=== PATIENT | female | born 1990 | race Caucasian/White ===

== ENCOUNTER 2018-03-23 14:54 | Emergency (ER) | payer OTHER, MEDICAID ==
[~2018-03-23] VITALS: Ht 157.5 cm; Wt 56.7 kg
[~2018-03-23 14:54] MED LIST: ACETAMINOPHEN-1 EAC1 PO; AUGMENTIN 875875 M1 PO; BACTROBAN22 GM TP; BENADRYL25 MG; BENADRYL25 MG PO; BENTYL 20 MG TA20 M1 PO; BENTYL10 MG PO; BIRTH CONTROL; BUTALB-APAP-CA1 EACH PO; CIPRO250 M1; COLACE100 MG PO; CORTISPORIN OTI10 M2 OT; CYMBALTA30 MG; HYDROCHLOROTHIA25 M2; HYDROCHLOROTHIA25 M2 PO; HYDROCODONE-AP1 EAC6 PO; HYDROCODONE-APA1 TA1 PO; IBUPROFEN 600600 M1 PO; IBUPROFEN 800800 M1 PO; IBUPROFEN 800800 MG PO; IRON325 PO; KEFLEX500 MG PO; LEVAQUIN 500 M500 M2 PO; LIORESAL 10 MG10 MG PO; LOPERAMIDE 2 MG2 M1 PO; LUNESTA2 MG PO; MACROBID 100 M100 M1 PO; MACROBID 100 M100 M2 PO; MONESSA PO; MULTIVITAMINS; NORCO 5-325 TA1 EACH PO; PAXIL10 MG PO; PAXIL20 MG; PERCOCET 5-3251 EACH PO; PERCOCET PO; PHENERGAN 25 MG25 M1 PO; PREDNISONE 20 M20 MG PO; PRENATAL; PROZAC 20 MG20 M1; SUPRAX400 MG; TRAMADOL 50 MG50 MG PO; TRINATE TABLET1 TAB PO; VICODIN 5-5001 EACH; VICODIN 5-5001 EACH PO; ZANAFLEX4 M1 PO; ZANTAC 150MG T150 MG PO; ZOFRAN ODT4 MG PO; ZOFRAN ODT4 MG SUBLING; ZOFRAN4 MG PO; ZOLOFT50 MG PO; ZPAK PO; ZYRTEC10 M5 PO
[2018-03-23 15:18] LABS: URINE BILIRUBIN NEGATIVE (Negative); URINE BLOOD NEGATIVE (Negative); URINE CLARITY CLEAR; URINE COLOR YELLOW; URINE GLUCOSE-RANDOM NEGATIVE (Negative); URINE KETONES NEGATIVE (Negative); URINE LEUKOCYTES-REFLEX TRACE (Negative); URINE NITRITE-REFLEX NEGATIVE (Negative); URINE PROTEIN NEGATIVE (Negative); URINE SPECIFIC GRAVITY <= 1.005 (1.005-1.030); URINE UROBILINOGEN 0.2 E.U./dl (0.2-1.0)
[2018-03-23] MEDS ORDERED: MAGOX 400400 MG PO (15:19)
[2018-03-23] MEDS ORDERED: CELEXA 10 MG TA10 M1 PO (15:21)
[2018-03-23] MEDS ORDERED: BUSPIRONE HCL10 MG PO (15:21)
[2018-03-23 15:23] LABS: BACTERIA-REFLEX None Seen /HPF (None Seen); CASTS None Seen /LPF (None Seen); CRYSTALS None Seen /LPF (None Seen); SQUAMOUS NONE SEEN /LPF (0-3); URINE RBC None Seen /HPF (0-2); URINE WBC-REFLEX None Seen /HPF (0-5)
[2018-03-23 15:45] LABS: ABSOLUTE BASOPHILS 0.1 thou/uL (0.0-0.2); ABSOLUTE EOSINOPHILS 0.1 thou/uL (0.0-0.7); ABSOLUTE LYMPHOCYTES 2.3 thou/uL (0.8-5.3); ABSOLUTE MONOCYTES 0.4 thou/uL (0.0-1.2); ABSOLUTE NEUTROPHILS 5.7 thou/uL (1.6-8.1); BASOPHILS 0.6 %; EOSINOPHILS 1.4 %; HEMATOCRIT 41.8 % (37.0-47.0); HEMOGLOBIN 13.8 gm/dL (12.0-15.0); MCH 29.3 pg (26.0-34.0); MCV 88.6 fL (80.0-100.0); MONOCYTES 4.9 %; MPV 7.5 fl. (7.2-11.1); NUCLEATED RBCS 0 /100WBC; PLATELET COUNT* 370 thou/uL (150-400); POLYS 66.1 %; RBC 4.72 mil/uL (4.20-5.00); RDW-CV 12.9 % (10.5-14.5); WBC 8.6 thou/uL (4.0-11.0)
[2018-03-23 15:51] LABS: CALCIUM 8.9 mg/dL (8.5-10.1); CREATININE 0.8 mg/dL (0.6-1.3); POTASSIUM 3.6 mmol/L (3.5-5.1)
[2018-03-23 15:56] LABS: ALBUMIN 4.1 g/dL (3.4-5.0); TOTAL BILIRUBIN 0.3 mg/dL (<0.1-1.0); TOTAL PROTEIN 7.1 g/dL (6.4-8.2)
[2018-03-23 16:01] VITALS: BP 118/69
== END 2018-03-23 16:02 | disposition left against medical advice (07) ==
LOC: M.ERS 14:54
PROVIDERS: Nurse Practitioner Family
DX: R10.31 Right lower quadrant pain (principal); F32.9 Major depressive disorder, single episode, unspecified; I10 Essential (primary) hypertension; F17.210 Nicotine dependence, cigarettes, uncomplicated; Z88.1 Allergy status to other antibiotic agents; Z88.2 Allergy status to sulfonamides; Z88.8 Allergy status to other drugs, medicaments and biological substances; Z98.890 Other specified postprocedural states; Z87.442 Personal history of urinary calculi; Z90.49 Acquired absence of other specified parts of digestive tract; Z90.710 Acquired absence of both cervix and uterus

== ENCOUNTER 2018-07-23 08:49 | Emergency (ER) | payer OTHER, MEDICAID ==
[~2018-07-23] VITALS: Ht 157.5 cm; Wt 51.3 kg
[~2018-07-23 08:49] MED LIST changes: +BUSPIRONE HCL10 MG PO; +CELEXA 10 MG TA10 M1 PO; +MAGOX 400400 MG PO
[2018-07-23] MEDS ORDERED: MULTI VITAMIN1 EACH PO (09:17)
[2018-07-23] MEDS ORDERED: VITAMIN D400 UNIT PO (09:17)
[2018-07-23] MEDS ORDERED: CYMBALTA60 MG PO (09:18)
[2018-07-23] MEDS ORDERED: TRAZODONE HCL100 MG PO (09:18)
[2018-07-23 09:37] LABS: ABSOLUTE EOSINOPHILS 0.2 thou/uL (0.0-0.7); ABSOLUTE LYMPHOCYTES 1.8 thou/uL (0.8-5.3); ABSOLUTE MONOCYTES 0.4 thou/uL (0.0-1.2); BASOPHILS 0.5 %; EOSINOPHILS 2.5 %; HEMATOCRIT 39.5 % (37.0-47.0); HEMOGLOBIN 13.2 gm/dL (12.0-15.0); LYMPHOCYTES 27.8 %; MCH 29.9 pg (26.0-34.0); MCHC 33.4 g/dL (28.0-37.0); MCV 89.5 fL (80.0-100.0); MONOCYTES 6.6 %; MPV 7.5 fl. (7.2-11.1); NUCLEATED RBCS 0 /100WBC; PLATELET COUNT* 344 thou/uL (150-400); POLYS 62.6 %; RBC 4.41 mil/uL (4.20-5.00); RDW-CV 13.4 % (10.5-14.5); WBC 6.4 thou/uL (4.0-11.0)
[2018-07-23 09:40] LABS: URINE BILIRUBIN NEGATIVE (Negative); URINE BLOOD NEGATIVE (Negative); URINE CLARITY CLEAR; URINE COLOR YELLOW; URINE GLUCOSE-RANDOM NEGATIVE (Negative); URINE KETONES NEGATIVE (Negative); URINE LEUKOCYTES-REFLEX NEGATIVE (Negative); URINE NITRITE-REFLEX NEGATIVE (Negative); URINE PROTEIN NEGATIVE (Negative); URINE SPECIFIC GRAVITY >= 1.030 (1.005-1.030); URINE UROBILINOGEN 0.2 E.U./dl (0.2-1.0)
[2018-07-23 09:44] LABS: CALCIUM 9.5 mg/dL (8.5-10.1); CREATININE 0.8 mg/dL (0.6-1.3)
[2018-07-23 09:49] LABS: ALBUMIN 4.1 g/dL (3.4-5.0); TOTAL BILIRUBIN 0.4 mg/dL (<0.1-1.0); TOTAL PROTEIN 6.9 g/dL (6.4-8.2)
[2018-07-23] MEDS ORDERED: ERYTHROMYCIN250 MG PO (10:48)
[2018-07-23] MEDS ORDERED: HYDROCODON-ACE1 EAC7 PO (10:48)
[2018-07-23] MEDS ORDERED: ZOFRAN4 MG PO (10:48)
[2018-07-23 11:03] VITALS: BP 94/35
== END 2018-07-23 11:18 | disposition home or self-care (01) ==
LOC: M.ERS 08:49
PROVIDERS: Emergency Medicine
DX: T85.848A Pain due to other internal prosthetic devices, implants and grafts, initial encounter (principal); R10.31 Right lower quadrant pain; R10.32 Left lower quadrant pain; F32.9 Major depressive disorder, single episode, unspecified; I10 Essential (primary) hypertension; M41.9 Scoliosis, unspecified; F17.210 Nicotine dependence, cigarettes, uncomplicated; Z88.2 Allergy status to sulfonamides; Z88.1 Allergy status to other antibiotic agents; Z87.442 Personal history of urinary calculi; Z90.710 Acquired absence of both cervix and uterus; Z98.890 Other specified postprocedural states; X58.XXXA Exposure to other specified factors, initial encounter; Y93.89 Activity, other specified; Y92.89 Other specified places as the place of occurrence of the external cause; Y99.8 Other external cause status

== ENCOUNTER 2018-07-26 16:59 | Emergency (ER) | payer OTHER, MEDICAID ==
[~2018-07-26] VITALS: Ht 157.5 cm; Wt 52.2 kg
[~2018-07-26 16:59] MED LIST changes: +CYMBALTA60 MG PO; +ERYTHROMYCIN250 MG PO; +HYDROCODON-ACE1 EAC7 PO; +MULTI VITAMIN1 EACH PO; +TRAZODONE HCL100 MG PO; +VITAMIN D400 UNIT PO
[2018-07-26] MEDS ORDERED: BUSPIRONE HCL10 MG PO (17:09)
[2018-07-26] MEDS ORDERED: TRAMADOL 50 MG50 MG PO (17:10)
[2018-07-26] MEDS ORDERED: PROTONIX40 M1 PO (17:10)
[2018-07-26 18:05] LABS: ABSOLUTE EOSINOPHILS 0.1 thou/uL (0.0-0.7); ABSOLUTE LYMPHOCYTES 1.6 thou/uL (0.8-5.3); ABSOLUTE MONOCYTES 0.4 thou/uL (0.0-1.2); BASOPHILS 0.5 %; EOSINOPHILS 2.4 %; HEMATOCRIT 37.1 % (37.0-47.0); HEMOGLOBIN 12.6 gm/dL (12.0-15.0); LYMPHOCYTES 25.2 %; MCH 30.2 pg (26.0-34.0); MCHC 33.8 g/dL (28.0-37.0); MCV 89.3 fL (80.0-100.0); MONOCYTES 6.3 %; MPV 7.7 fl. (7.2-11.1); NUCLEATED RBCS 0 /100WBC; PLATELET COUNT* 346 thou/uL (150-400); POLYS 65.6 %; RBC 4.16 mil/uL (4.20-5.00); RDW-CV 12.9 % (10.5-14.5); WBC 6.2 thou/uL (4.0-11.0)
[2018-07-26 18:15] LABS: ANION GAP 7 mmol/L (7-16); BUN 8 mg/dL (7-18); CALCIUM 8.6 mg/dL (8.5-10.1); CHLORIDE 107 mmol/L (98-107); CO2 27 mmol/L (21-32); CREATININE 0.7 mg/dL (0.6-1.3); GLUCOSE 91 mg/dL (70-99); POTASSIUM 4.1 mmol/L (3.5-5.1); SODIUM 141 mmol/L (136-145)
[2018-07-26 18:24] LABS: ALBUMIN 3.7 g/dL (3.4-5.0); ALKALINE PHOSPHATASE 44 U/L (46-116); LIPASE 56 U/L (73-393); SGOT 15 U/L (15-37); SGPT 17 U/L (30-65); TOTAL BILIRUBIN 0.3 mg/dL (<0.1-1.0); TOTAL PROTEIN 6.4 g/dL (6.4-8.2); TROPONIN-I LEVEL <0.06 ng/mL (<0.06)
[2018-07-26] MEDS ORDERED: CARAFATE1 GM/10 ML PO (19:48)
[2018-07-26] MEDS ORDERED: LIDOCAINE VISC100 ML PO (19:48)
[2018-07-26 19:59] VITALS: BP 101/61
--- NOTE | 2018-07-27 11:11 | EKG ---
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1990 Requested By: Rola Moreno Order Number: [id number] MD: Valdez Nunze Measurements Intervals [place] Rate: 83 P: 48 TX: 115 QRS: 80 QRSD: 91 T: 68 QT: 351 QTc: 413 Interpretive Statements Sinus rhythm Borderline short [place] interval Compared to ECG 03/26/2016 08:35:57 Sinus tachycardia no longer present T-wave abnormality no longer present Electronically Signed On 07-27-2018 11:11:00 CDT by Valdez Nunez [email or web address] <ELECTRONICALLY SIGNED> By: Valdez Nunez MD, [facility] 07/27/18 1111 1702 170 Valdez Nunez MD, [facility] /EPI
== END 2018-07-26 19:59 | disposition home or self-care (01) ==
LOC: M.ERS 16:59
PROVIDERS: Nurse Practitioner Family
DX: R07.89 Other chest pain (principal); R10.13 Epigastric pain; G89.18 Other acute postprocedural pain; G89.29 Other chronic pain; F17.200 Nicotine dependence, unspecified, uncomplicated; M41.9 Scoliosis, unspecified; F32.9 Major depressive disorder, single episode, unspecified; I10 Essential (primary) hypertension; Z87.42 Personal history of other diseases of the female genital tract; Z90.710 Acquired absence of both cervix and uterus; Z88.8 Allergy status to other drugs, medicaments and biological substances; Z88.1 Allergy status to other antibiotic agents; Z88.2 Allergy status to sulfonamides; Z98.890 Other specified postprocedural states

== ENCOUNTER 2018-11-15 11:21 | Emergency (ER) | payer OTHER ==
[~2018-11-15] VITALS: Ht 157.5 cm; Wt 62.6 kg
[~2018-11-15 11:21] MED LIST changes: +CARAFATE1 GM/10 ML PO; +LIDOCAINE VISC100 ML PO; +PROTONIX40 M1 PO
[2018-11-15 12:27] LABS: ABSOLUTE EOSINOPHILS 0.6 thou/uL (0.0-0.7); ABSOLUTE LYMPHOCYTES 1.1 thou/uL (0.8-5.3); ABSOLUTE MONOCYTES 0.2 thou/uL (0.0-1.2); ABSOLUTE NEUTROPHILS 4.1 thou/uL (1.6-8.1); BASOPHILS 0.4 %; EOSINOPHILS 9.9 %; HEMATOCRIT 37.1 % (37.0-47.0); HEMOGLOBIN 12.9 gm/dL (12.0-15.0); LYMPHOCYTES 18.2 %; MCH 30.3 pg (26.0-34.0); MCHC 34.7 g/dL (28.0-37.0); MCV 87.2 fL (80.0-100.0); MONOCYTES 2.6 %; MPV 6.5 fl. (7.2-11.1); NUCLEATED RBCS 0 /100WBC; PLATELET COUNT* 306 thou/uL (150-400); POLYS 68.9 %; RBC 4.26 mil/uL (4.20-5.00); RDW-CV 12.6 % (10.5-14.5); WBC 5.9 thou/uL (4.0-11.0)
[2018-11-15 12:34] LABS: CREATININE 0.8 mg/dL (0.6-1.3); POTASSIUM 3.8 mmol/L (3.5-5.1)
[2018-11-15 12:39] LABS: ALBUMIN 3.2 g/dL (3.4-5.0); TOTAL BILIRUBIN 0.2 mg/dL (<0.1-1.0); TOTAL PROTEIN 6.1 g/dL (6.4-8.2)
[2018-11-15] MEDS ORDERED: PREDNISONE 20 M20 MG PO (12:52)
[2018-11-15] MEDS ORDERED: ZPAK PO (12:52)
[2018-11-15 13:04] VITALS: BP 105/59
== END 2018-11-15 13:04 | disposition home or self-care (01) ==
LOC: M.ERS 11:21
PROVIDERS: Physician Assistant
DX: J02.9 Acute pharyngitis, unspecified (principal); R21 Rash and other nonspecific skin eruption; F17.200 Nicotine dependence, unspecified, uncomplicated; I10 Essential (primary) hypertension; F32.9 Major depressive disorder, single episode, unspecified; M41.9 Scoliosis, unspecified; Z88.1 Allergy status to other antibiotic agents; Z88.2 Allergy status to sulfonamides; Z88.8 Allergy status to other drugs, medicaments and biological substances; Z98.890 Other specified postprocedural states; Z87.442 Personal history of urinary calculi; Z90.710 Acquired absence of both cervix and uterus

== ENCOUNTER 2019-01-06 10:02 | Emergency (ER) | payer OTHER ==
[~2019-01-06] VITALS: Ht 157.5 cm; Wt 79.4 kg
[2019-01-06] MEDS ORDERED: ADVIL100 M2 PO (10:23)
[2019-01-06] MEDS ORDERED: XANAX2 MG PO (10:24)
[2019-01-06] MEDS ORDERED: AMITRIPTYLINE H10 M1 PO (10:24)
[2019-01-06] MEDS ORDERED: TRAZODONE 150150 M1 PO (10:24)
[2019-01-06 10:56] LABS: URINE BILIRUBIN NEGATIVE (Negative); URINE BLOOD NEGATIVE (Negative); URINE CLARITY CLEAR; URINE COLOR STRAW; URINE GLUCOSE-RANDOM NEGATIVE (Negative); URINE KETONES NEGATIVE (Negative); URINE LEUKOCYTES-REFLEX TRACE (Negative); URINE NITRITE-REFLEX NEGATIVE (Negative); URINE PROTEIN NEGATIVE (Negative); URINE UROBILINOGEN 0.2 E.U./dl (0.2-1.0)
[2019-01-06 11:00] LABS: SQUAMOUS >10 Many /LPF (0-3)
[2019-01-06 11:02] LABS: URINE RBC 0-2 Rare /HPF (0-2); URINE WBC-REFLEX 6-15 Few /HPF (0-5)
[2019-01-06 11:03] LABS: CASTS None Seen /LPF (None Seen); CRYSTALS None Seen /LPF (None Seen); MUCUS None Seen strn/LPF (None Seen); YEAST-REFLEX Present (None Seen)
[2019-01-06 11:17] LABS: ABSOLUTE EOSINOPHILS 0.3 thou/uL (0.0-0.7); ABSOLUTE LYMPHOCYTES 1.8 thou/uL (0.8-5.3); ABSOLUTE MONOCYTES 0.6 thou/uL (0.0-1.2); ABSOLUTE NEUTROPHILS 6.5 thou/uL (1.6-8.1); BASOPHILS 0.5 %; EOSINOPHILS 3.6 %; HEMATOCRIT 38.4 % (37.0-47.0); HEMOGLOBIN 12.9 gm/dL (12.0-15.0); LYMPHOCYTES 19.2 %; MCH 28.8 pg (26.0-34.0); MCHC 33.5 g/dL (28.0-37.0); MONOCYTES 6.3 %; MPV 5.9 fl. (7.2-11.1); NUCLEATED RBCS 0 /100WBC; PLATELET COUNT* 457 thou/uL (150-400); POLYS 70.4 %; RBC 4.47 mil/uL (4.20-5.00); RDW-CV 12.7 % (10.5-14.5); WBC 9.2 thou/uL (4.0-11.0)
[2019-01-06 11:25] LABS: CALCIUM 9.1 mg/dL (8.5-10.1); CREATININE 0.8 mg/dL (0.6-1.3); POTASSIUM 4.9 mmol/L (3.5-5.1)
[2019-01-06 11:37] LABS: ALBUMIN 3.6 g/dL (3.4-5.0); TOTAL BILIRUBIN 0.2 mg/dL (<0.1-1.0); TOTAL PROTEIN 6.5 g/dL (6.4-8.2)
[2019-01-06] MEDS ORDERED: COLACE100 MG PO (11:43)
[2019-01-06 11:52] VITALS: BP 137/76
--- NOTE | 2019-01-07 12:09 | EKG ---
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: : 1990 Requested By: Chantal Lord Order Number: [id number] MD: Raghu Stallings Measurements Intervals [place] Rate: 89 P: 62 MO: 135 QRS: 75 QRSD: 94 T: 67 QT: 368 QTc: 448 Interpretive Statements Sinus rhythm Nonspecific T abnrm, anterolateral leads Compared to ECG 07/26/2018 17:02:13 No significant changes Electronically Signed On 01-07-2019 12:09:39 SOAP BOILER by Raghu Stallings [email or web address] <ELECTRONICALLY SIGNED> By: Raghu Stallings MD, [facility] 01/07/19 1209 1042 41 Raghu Stallings MD, FACC /EPI
== END 2019-01-06 11:52 | disposition home or self-care (01) ==
LOC: M.ERS 10:02
PROVIDERS: Nurse Practitioner Family
DX: K59.00 Constipation, unspecified (principal); R10.84 Generalized abdominal pain; I10 Essential (primary) hypertension; M41.9 Scoliosis, unspecified; F32.9 Major depressive disorder, single episode, unspecified; Z98.890 Other specified postprocedural states; Z87.442 Personal history of urinary calculi; Z90.710 Acquired absence of both cervix and uterus; Z88.1 Allergy status to other antibiotic agents; Z88.2 Allergy status to sulfonamides

== ENCOUNTER 2019-05-06 13:54 | Emergency (ER) | payer OTHER ==
[~2019-05-06] VITALS: Ht 157.5 cm; Wt 64.9 kg
[~2019-05-06 13:54] MED LIST changes: +ADVIL100 M2 PO; +AMITRIPTYLINE H10 M1 PO; +TRAZODONE 150150 M1 PO; +XANAX2 MG PO
[2019-05-06 14:10] LABS: URINE BILIRUBIN NEGATIVE (Negative); URINE BLOOD NEGATIVE (Negative); URINE CLARITY CLEAR; URINE COLOR YELLOW; URINE GLUCOSE-RANDOM NEGATIVE (Negative); URINE KETONES NEGATIVE (Negative); URINE LEUKOCYTES-REFLEX NEGATIVE (Negative); URINE NITRITE-REFLEX NEGATIVE (Negative); URINE PROTEIN NEGATIVE (Negative); URINE SPECIFIC GRAVITY 1.015 (1.005-1.030); URINE UROBILINOGEN 0.2 E.U./dl (0.2-1.0)
[2019-05-06] MEDS ORDERED: ROBAXIN 750 MG750 MG PO (14:12)
[2019-05-06] MEDS ORDERED: PREDNISONE 5 MG5 M1 PO (14:12)
[2019-05-06 14:55] LABS: ABSOLUTE LYMPHOCYTES 0.9 thou/uL (0.8-5.3); ABSOLUTE MONOCYTES 0.4 thou/uL (0.0-1.2); ABSOLUTE NEUTROPHILS 5.7 thou/uL (1.6-8.1); BASOPHILS 0.3 %; EOSINOPHILS 0.3 %; HEMATOCRIT 40.4 % (37.0-47.0); HEMOGLOBIN 13.8 gm/dL (12.0-15.0); MCH 29.6 pg (26.0-34.0); MCHC 34.2 g/dL (28.0-37.0); MCV 86.7 fL (80.0-100.0); MONOCYTES 6.3 %; MPV 7.4 fl. (7.2-11.1); NUCLEATED RBCS 0 /100WBC; PLATELET COUNT* 399 thou/uL (150-400); POLYS 80.1 %; RBC 4.66 mil/uL (4.20-5.00); RDW-CV 13.3 % (10.5-14.5); WBC 7.2 thou/uL (4.0-11.0)
[2019-05-06 15:04] LABS: CALCIUM 8.6 mg/dL (8.5-10.1); CREATININE 0.7 mg/dL (0.6-1.3); POTASSIUM 3.7 mmol/L (3.5-5.1)
[2019-05-06 15:08] LABS: ALBUMIN 3.8 g/dL (3.4-5.0); TOTAL BILIRUBIN 0.2 mg/dL (<0.1-1.0); TOTAL PROTEIN 6.7 g/dL (6.4-8.2)
[2019-05-06] MEDS ORDERED: NORCO 5-325 TA1 EAC1 PO (16:00)
[2019-05-06] MEDS ORDERED: LIDODERM1 EACH TRANSDERM (16:00)
[2019-05-06 16:05] LABS: ESR (SEDRATE) 3 mm/hr (0-20)
[2019-05-06 16:13] VITALS: BP 111/81
[2019-05-06 17:03] LABS: AMP/METHAMP Negative (Negative); BARBITURATES Negative (Negative); BENZODIAZEPINES Negative (Negative); COCAINE Negative (Negative); METHADONE Negative (Negative); OPIATES POSITIVE (Negative); PCP Negative (Negative); THC Negative (Negative)
--- NOTE | 2019-05-07 10:59 | EKG ---
[place] [address] ELECTROCARDIOGRAM REPORT Name: ANAYELI PRAJAPATI Room: [facility]#: [id number] Admission: 05/06/19 Attend Phys: Discharge: 05/06/19 Date of : [birth year] Date of Service: 05/06/19 1505 Report #: [id number] THIS REPORT FOR: //name// [facility] ED Test Date: 2019-05-06 Test Time: 15:05:54 Pat Name: ANAYELI PRAJAPATI Department: Room: Gender: F Director Trust: : 1990 Requested By: Paige Garcia Order Number: [id number] MD: Valdez Nunez Measurements Intervals [place] Rate: 114 P: 77 NC: 121 QRS: 85 QRSD: 84 T: 53 QT: 301 QTc: 415 Interpretive Statements Sinus tachycardia Baseline wander in lead(s) V5 Compared to ECG 01/06/2019 10:42:07 Sinus rhythm no longer present Electronically Signed On 05-07-2019 10:58:46 DIORAMIST by Valdez Nunez [email or web address] <ELECTRONICALLY SIGNED> By: Valdez Nunez MD, FAC 05/07/19 1058 1505 1505 Valdez Nunez MD, [facility] /EPI
== END 2019-05-06 16:15 | disposition home or self-care (01) ==
LOC: M.ERS 13:54
PROVIDERS: Physician Assistant
DX: M54.2 Cervicalgia (principal); M54.5 Low back pain; R05 Cough; R00.0 Tachycardia, unspecified; I10 Essential (primary) hypertension; M79.7 Fibromyalgia; M41.9 Scoliosis, unspecified; F32.9 Major depressive disorder, single episode, unspecified; F41.9 Anxiety disorder, unspecified; Z98.890 Other specified postprocedural states; Z87.442 Personal history of urinary calculi; Z90.710 Acquired absence of both cervix and uterus; Z88.1 Allergy status to other antibiotic agents

== ENCOUNTER 2019-05-09 16:52 | Emergency (ER) | payer OTHER ==
[~2019-05-09] VITALS: Ht 157.5 cm; Wt 66.7 kg
[~2019-05-09 16:52] MED LIST changes: +LIDODERM1 EACH TRANSDERM; +NORCO 5-325 TA1 EAC1 PO; +PREDNISONE 5 MG5 M1 PO; +ROBAXIN 750 MG750 MG PO
[2019-05-09] MEDS ORDERED: BUSPIRONE HCL10 MG PO (17:05)
[2019-05-09] MEDS ORDERED: XANAX 0.5 MG0.5 M1 PO (17:06)
[2019-05-09 17:29] LABS: ABSOLUTE LYMPHOCYTES 1.3 thou/uL (0.8-5.3); ABSOLUTE MONOCYTES 0.3 thou/uL (0.0-1.2); BASOPHILS 0.4 %; HEMATOCRIT 41.8 % (37.0-47.0); HEMOGLOBIN 14.1 gm/dL (12.0-15.0); LYMPHOCYTES 15.1 %; MCH 29.1 pg (26.0-34.0); MCHC 33.7 g/dL (28.0-37.0); MCV 86.3 fL (80.0-100.0); MONOCYTES 2.9 %; MPV 7.1 fl. (7.2-11.1); NUCLEATED RBCS 0 /100WBC; PLATELET COUNT* 415 thou/uL (150-400); POLYS 81.6 %; RBC 4.84 mil/uL (4.20-5.00); RDW-CV 13.3 % (10.5-14.5); WBC 8.6 thou/uL (4.0-11.0)
[2019-05-09 17:33] LABS: URINE BILIRUBIN NEGATIVE (Negative); URINE BLOOD NEGATIVE (Negative); URINE CLARITY CLEAR; URINE COLOR YELLOW; URINE GLUCOSE-RANDOM NEGATIVE (Negative); URINE KETONES NEGATIVE (Negative); URINE LEUKOCYTES-REFLEX TRACE (Negative); URINE NITRITE-REFLEX NEGATIVE (Negative); URINE PROTEIN NEGATIVE (Negative); URINE SPECIFIC GRAVITY 1.015 (1.005-1.030); URINE UROBILINOGEN 0.2 E.U./dl (0.2-1.0)
[2019-05-09 17:42] LABS: BACTERIA-REFLEX 1-9 Few /HPF (None Seen); CASTS None Seen /LPF (None Seen); CRYSTALS None Seen /LPF (None Seen); MUCUS None Seen strn/LPF (None Seen); SQUAMOUS >10 Many /LPF (0-3); URINE RBC None Seen /HPF (0-2); URINE WBC-REFLEX 0-5 Rare /HPF (0-5)
[2019-05-09 17:45] LABS: CALCIUM 8.5 mg/dL (8.5-10.1); CREATININE 0.6 mg/dL (0.6-1.3); POTASSIUM 3.8 mmol/L (3.5-5.1)
[2019-05-09 17:49] LABS: ALBUMIN 3.8 g/dL (3.4-5.0); TOTAL BILIRUBIN 0.2 mg/dL (<0.1-1.0); TOTAL PROTEIN 6.8 g/dL (6.4-8.2)
[2019-05-09] MEDS ORDERED: NORCO 5-325 TA1 EAC1 PO (19:29)
[2019-05-09 19:53] VITALS: BP 125/62
== END 2019-05-09 19:53 | disposition home or self-care (01) ==
LOC: M.ERS 16:52
PROVIDERS: Physician Assistant
DX: M54.16 Radiculopathy, lumbar region (principal); Q76.49 Other congenital malformations of spine, not associated with scoliosis; I10 Essential (primary) hypertension; M79.7 Fibromyalgia; M41.9 Scoliosis, unspecified; F32.9 Major depressive disorder, single episode, unspecified; F41.9 Anxiety disorder, unspecified; Z98.890 Other specified postprocedural states; Z87.442 Personal history of urinary calculi; Z90.710 Acquired absence of both cervix and uterus; Z88.1 Allergy status to other antibiotic agents

== ENCOUNTER 2019-05-13 18:15 | Emergency (ER) | payer OTHER ==
[~2019-05-13] VITALS: Ht 157.5 cm; Wt 66.7 kg
[~2019-05-13 18:15] MED LIST changes: +XANAX 0.5 MG0.5 M1 PO
[2019-05-13] MEDS ORDERED: NEURONTIN300 MG PO (20:51)
[2019-05-13] MEDS ORDERED: BACLOFEN 10MG T10 MG PO (20:51)
[2019-05-13] MEDS ORDERED: ROBAXIN 750 MG750 MG PO (21:00)
[2019-05-13 21:04] VITALS: BP 169/79
== END 2019-05-13 21:05 | disposition home or self-care (01) ==
LOC: M.ERS 18:15
DX: M54.5 Low back pain (principal); I10 Essential (primary) hypertension; M79.7 Fibromyalgia; F32.9 Major depressive disorder, single episode, unspecified; F41.9 Anxiety disorder, unspecified; Z98.890 Other specified postprocedural states; Z87.442 Personal history of urinary calculi; Z90.710 Acquired absence of both cervix and uterus; Z88.1 Allergy status to other antibiotic agents

== ENCOUNTER 2019-08-01 21:42 | Emergency (ER) | payer OTHER ==
[~2019-08-01] VITALS: Ht 157.5 cm; Wt 61.2 kg
[~2019-08-01 21:42] MED LIST changes: +BACLOFEN 10MG T10 MG PO; +NEURONTIN300 MG PO
[2019-08-01] MEDS ORDERED: ZANAFLEX4 M1 PO (21:55)
[2019-08-01] MEDS ORDERED: PROAIR HFA8.5 GM INH (21:55)
[2019-08-01] MEDS ORDERED: TESSALON PERLE100 MG PO (21:55)
[2019-08-01 22:14] LABS: ABSOLUTE EOSINOPHILS 0.1 thou/uL (0.0-0.7); ABSOLUTE LYMPHOCYTES 2.9 thou/uL (0.8-5.3); ABSOLUTE MONOCYTES 0.4 thou/uL (0.0-1.2); ABSOLUTE NEUTROPHILS 4.7 thou/uL (1.6-8.1); BASOPHILS 0.4 %; EOSINOPHILS 0.6 %; HEMATOCRIT 41.8 % (37.0-47.0); HEMOGLOBIN 14.1 gm/dL (12.0-15.0); LYMPHOCYTES 36.2 %; MCH 29.6 pg (26.0-34.0); MCHC 33.8 g/dL (28.0-37.0); MCV 87.4 fL (80.0-100.0); MONOCYTES 4.6 %; MPV 7.7 fl. (7.2-11.1); NUCLEATED RBCS 0 /100WBC; PLATELET COUNT* 347 thou/uL (150-400); POLYS 58.2 %; RBC 4.78 mil/uL (4.20-5.00); RDW-CV 13.3 % (10.5-14.5); WBC 8.1 thou/uL (4.0-11.0)
[2019-08-01 22:21] LABS: CALCIUM 8.1 mg/dL (8.5-10.1); CREATININE 0.8 mg/dL (0.6-1.3); POTASSIUM 3.8 mmol/L (3.5-5.1)
[2019-08-01 22:31] LABS: TOTAL BILIRUBIN 0.3 mg/dL (<0.1-1.0); TOTAL PROTEIN 7.1 g/dL (6.4-8.2)
[2019-08-01] MEDS ORDERED: ZPAK PO (23:51)
[2019-08-01] MEDS ORDERED: NORCO 5-325 TA1 EAC1 PO (23:51)
[2019-08-02 00:06] VITALS: BP 124/67
--- NOTE | 2019-08-02 16:12 | EKG ---
[place] [address] ELECTROCARDIOGRAM REPORT Name: ANAYELI PRAJAPATI Room: [facility]#: [id number] Admission: 08/01/19 Attend Phys: Discharge: 08/02/19 Date of : [birth year] Date of Service: 08/01/192202 Report #: [id number] THIS REPORT FOR: //name// [facility] ED Test Date: 2019-08-01 Test Time: 22:03:46 Pat Name: ANAYELI PRAJAPATI Department: Room: Gender: F Rod Placer: LUIS : 1990 Requested By: Rogelio Robledo Order Number: [id number] MD: Raghu Stallings Measurements Intervals [place] Rate: 98 P: 60 [place]: 123 QRS: 78 QRSD: 84 T: 54 QT: 320 QTc: 409 Interpretive Statements Sinus rhythm Compared to ECG 05/06/2019 15:05:54 Sinus tachycardia no longer present Electronically Signed On 08-02-2019 16:10:11 CDT by Raghu Stallings [email or web address] <ELECTRONICALLY SIGNED> By: Raghu Stallings MD, [facility] 08/02/19 1610 02 02 Raghu Stallings MD, [facility] /EPI
== END 2019-08-02 00:06 | disposition home or self-care (01) ==
LOC: M.ERS 21:42
PROVIDERS: Emergency Medicine Emergency Medical Services
DX: M94.0 Chondrocostal junction syndrome [Tietze] (principal); I10 Essential (primary) hypertension; M79.7 Fibromyalgia; M41.9 Scoliosis, unspecified; Z88.1 Allergy status to other antibiotic agents; Z88.2 Allergy status to sulfonamides; Z98.890 Other specified postprocedural states; Z87.442 Personal history of urinary calculi; Z90.710 Acquired absence of both cervix and uterus

== ENCOUNTER 2019-08-16 00:05 | Emergency (ER) | payer OTHER ==
[~2019-08-16] VITALS: Ht 157.5 cm; Wt 59.0 kg
[~2019-08-16 00:05] MED LIST changes: +PROAIR HFA8.5 GM INH; +TESSALON PERLE100 MG PO
[2019-08-16] MEDS ORDERED: ZOLOFT50 M1 PO (00:15)
[2019-08-16] MEDS ORDERED: CLONAZEPAM 0.50.5 M1 PO (00:15)
[2019-08-16] MEDS ORDERED: CLINDAMYCIN (00:16)
[2019-08-16 00:44] LABS: ABSOLUTE EOSINOPHILS 0.1 thou/uL (0.0-0.7); ABSOLUTE MONOCYTES 0.5 thou/uL (0.0-1.2); BASOPHILS 0.7 %; EOSINOPHILS 1.8 %; HEMATOCRIT 37.7 % (37.0-47.0); HEMOGLOBIN 12.9 gm/dL (12.0-15.0); LYMPHOCYTES 44.6 %; MCH 29.6 pg (26.0-34.0); MCHC 34.1 g/dL (28.0-37.0); MCV 86.8 fL (80.0-100.0); MONOCYTES 7.7 %; MPV 7.8 fl. (7.2-11.1); NUCLEATED RBCS 0 /100WBC; PLATELET COUNT* 277 thou/uL (150-400); POLYS 45.2 %; RBC 4.34 mil/uL (4.20-5.00); RDW-CV 13.3 % (10.5-14.5); WBC 6.6 thou/uL (4.0-11.0)
[2019-08-16 01:00] LABS: CALCIUM 8.3 mg/dL (8.5-10.1); POTASSIUM 3.7 mmol/L (3.5-5.1)
[2019-08-16 01:04] LABS: ALBUMIN 3.5 g/dL (3.4-5.0); TOTAL BILIRUBIN 0.3 mg/dL (<0.1-1.0); TOTAL PROTEIN 6.3 g/dL (6.4-8.2)
[2019-08-16 01:52] LABS: URINE BILIRUBIN NEGATIVE (Negative); URINE BLOOD NEGATIVE (Negative); URINE CLARITY CLEAR; URINE COLOR YELLOW; URINE GLUCOSE-RANDOM NEGATIVE (Negative); URINE KETONES NEGATIVE (Negative); URINE LEUKOCYTES-REFLEX NEGATIVE (Negative); URINE NITRITE-REFLEX NEGATIVE (Negative); URINE PROTEIN NEGATIVE (Negative); URINE SPECIFIC GRAVITY <= 1.005 (1.005-1.030); URINE UROBILINOGEN 0.2 E.U./dl (0.2-1.0)
[2019-08-16 02:01] LABS: AMP/METHAMP Negative (Negative); BARBITURATES Negative (Negative); BENZODIAZEPINES Negative (Negative); COCAINE Negative (Negative); METHADONE Negative (Negative); OPIATES POSITIVE (Negative); PCP Negative (Negative); THC Negative (Negative)
[2019-08-16] MEDS ORDERED: PROMS25 WY RECTAL (03:13)
[2019-08-16] MEDS ORDERED: DICYCLOMINE HCL20 MG PO (03:13)
[2019-08-16] MEDS ORDERED: NAPROSYN500 MG PO (03:13)
[2019-08-16 03:36] VITALS: BP 105/50
--- NOTE | 2019-08-16 16:53 | EKG ---
[place] [address] ELECTROCARDIOGRAM REPORT Name: ANAYELI PRAJAPATI Room: 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 : 1990 Requested By: Anyi Briscoe Order Number: [id number] MD: Raghu Stallings Measurements Intervals [place] Rate: 70 P: 57 TN: 126 QRS: 77 QRSD: 104 T: 65 QT: 361 QTc: 390 Interpretive Statements Sinus rhythm ST elev, probable normal early repol pattern Baseline wander in lead(s) II,III,aVF Compared to ECG 08/01/2019 22:03:46 ST (T wave) deviation now present Electronically Signed On 08-16-2019 16:52:15 CDT by Raghu Stallings [email or web address] <ELECTRONICALLY SIGNED> By: Raghu Stallings MD, [facility] 08/16/19 1652 0009 0009 Raghu Stallings MD, FAC /EPI
[2019-08-16] MEDS ORDERED: TYLENOL WITH CO1 TA1 PO (19:33)
[2019-08-16] MEDS ORDERED: LOPERAMIDE 2 MG2 M1 PO (19:33)
[2019-08-16] MEDS ORDERED: ONDANSETRON ODT4 MG PO (19:33)
== END 2019-08-16 03:37 | disposition home or self-care (01) ==
LOC: M.ERS 00:05
PROVIDERS: Personal Emergency Response Attendant
DX: R10.12 Left upper quadrant pain (principal); R10.11 Right upper quadrant pain; R19.7 Diarrhea, unspecified; I10 Essential (primary) hypertension; M79.7 Fibromyalgia; F41.9 Anxiety disorder, unspecified; F32.9 Major depressive disorder, single episode, unspecified; Z98.890 Other specified postprocedural states; Z87.442 Personal history of urinary calculi; Z90.710 Acquired absence of both cervix and uterus; Z88.1 Allergy status to other antibiotic agents; Z88.2 Allergy status to sulfonamides

== ENCOUNTER 2019-08-16 17:23 | Emergency (ER) | payer OTHER ==
[~2019-08-16] VITALS: Ht 157.5 cm; Wt 59.0 kg
[~2019-08-16 17:23] MED LIST changes: +CLINDAMYCIN; +CLONAZEPAM 0.50.5 M1 PO; +DICYCLOMINE HCL20 MG PO; +NAPROSYN500 MG PO; +PROMS25 WY RECTAL; +ZOLOFT50 M1 PO
[2019-08-16 17:51] LABS: URINE BILIRUBIN NEGATIVE (Negative); URINE BLOOD NEGATIVE (Negative); URINE CLARITY CLEAR; URINE COLOR YELLOW; URINE GLUCOSE-RANDOM NEGATIVE (Negative); URINE KETONES NEGATIVE (Negative); URINE LEUKOCYTES-REFLEX NEGATIVE (Negative); URINE NITRITE-REFLEX NEGATIVE (Negative); URINE PROTEIN NEGATIVE (Negative); URINE SPECIFIC GRAVITY 1.025 (1.005-1.030); URINE UROBILINOGEN 0.2 E.U./dl (0.2-1.0)
[2019-08-16 18:04] LABS: ABSOLUTE LYMPHOCYTES 0.9 thou/uL (0.8-5.3); ABSOLUTE MONOCYTES 0.1 thou/uL (0.0-1.2); ABSOLUTE NEUTROPHILS 4.8 thou/uL (1.6-8.1); BASOPHILS 0.2 %; EOSINOPHILS 0.2 %; HEMATOCRIT 43.7 % (37.0-47.0); LYMPHOCYTES 15.9 %; MCH 29.8 pg (26.0-34.0); MCHC 34.2 g/dL (28.0-37.0); MCV 87.2 fL (80.0-100.0); MONOCYTES 2.4 %; MPV 7.7 fl. (7.2-11.1); NUCLEATED RBCS 0 /100WBC; PLATELET COUNT* 294 thou/uL (150-400); POLYS 81.3 %; RBC 5.01 mil/uL (4.20-5.00); RDW-CV 13.2 % (10.5-14.5); WBC 5.9 thou/uL (4.0-11.0)
[2019-08-16 18:05] LABS: HEMOGLOBIN 14.9 gm/dL (12.0-15.0)
[2019-08-16 18:21] LABS: CALCIUM 8.5 mg/dL (8.5-10.1); CREATININE 0.9 mg/dL (0.6-1.3); TOTAL BILIRUBIN 0.4 mg/dL (<0.1-1.0); TOTAL PROTEIN 7.1 g/dL (6.4-8.2)
[2019-08-16 18:29] LABS: POTASSIUM 3.8 mmol/L (3.5-5.1)
[2019-08-16] MEDS ORDERED: ONDANSETRON ODT4 MG PO (19:33)
[2019-08-16] MEDS ORDERED: LOPERAMIDE 2 MG2 M1 PO (19:33)
[2019-08-16] MEDS ORDERED: TYLENOL WITH CO1 TA1 PO (19:33)
[2019-08-16 20:05] VITALS: BP 122/78
== END 2019-08-16 20:06 | disposition home or self-care (01) ==
LOC: M.ERS 17:23
PROVIDERS: Physician Assistant
DX: R10.11 Right upper quadrant pain (principal); R10.84 Generalized abdominal pain; R11.2 Nausea with vomiting, unspecified; I10 Essential (primary) hypertension; M79.7 Fibromyalgia; F32.9 Major depressive disorder, single episode, unspecified; F41.9 Anxiety disorder, unspecified; Z98.890 Other specified postprocedural states; Z87.442 Personal history of urinary calculi; Z90.710 Acquired absence of both cervix and uterus; Z88.1 Allergy status to other antibiotic agents; Z88.2 Allergy status to sulfonamides; Z88.8 Allergy status to other drugs, medicaments and biological substances

== ENCOUNTER 2019-10-28 12:07 | Emergency (ER) | payer OTHER ==
[~2019-10-28] VITALS: Ht 157.5 cm; Wt 53.5 kg
[~2019-10-28 12:07] MED LIST changes: +ONDANSETRON ODT4 MG PO; +TYLENOL WITH CO1 TA1 PO
[2019-10-28] MEDS ORDERED: ENOXAPARIN30 MG/0.3 SUBQ (12:19)
[2019-10-28] MEDS ORDERED: JANTOVEN1 MG PO (12:19)
[2019-10-28] MEDS ORDERED: ZOLOFT25 MG PO (12:19)
[2019-10-28] MEDS ORDERED: CLONAZEPAM 0.50.5 M1 PO (12:20)
[2019-10-28 12:42] LABS: ABSOLUTE EOSINOPHILS 0.1 thou/uL (0.0-0.7); ABSOLUTE LYMPHOCYTES 2.7 thou/uL (0.8-5.3); ABSOLUTE MONOCYTES 0.4 thou/uL (0.0-1.2); ABSOLUTE NEUTROPHILS 2.7 thou/uL (1.6-8.1); BASOPHILS 0.6 %; EOSINOPHILS 1.1 %; HEMATOCRIT 36.1 % (37.0-47.0); HEMOGLOBIN 12.4 gm/dL (12.0-15.0); LYMPHOCYTES 45.1 %; MCH 29.8 pg (26.0-34.0); MCHC 34.3 g/dL (28.0-37.0); MCV 86.8 fL (80.0-100.0); MONOCYTES 7.5 %; MPV 7.4 fl. (7.2-11.1); NUCLEATED RBCS 0 /100WBC; PLATELET COUNT* 305 thou/uL (150-400); POLYS 45.7 %; RBC 4.16 mil/uL (4.20-5.00); RDW-CV 13.9 % (10.5-14.5); WBC 5.9 thou/uL (4.0-11.0)
[2019-10-28 12:53] LABS: CALCIUM 8.5 mg/dL (8.5-10.1); CREATININE 0.6 mg/dL (0.6-1.3); POTASSIUM 3.6 mmol/L (3.5-5.1)
[2019-10-28 13:03] LABS: ALBUMIN 3.8 g/dL (3.4-5.0); TOTAL BILIRUBIN 0.2 mg/dL (<0.1-1.0); TOTAL PROTEIN 6.5 g/dL (6.4-8.2)
[2019-10-28 13:27] LABS: APTT 39.4 Seconds (25.0-31.3); INR 1.4; PROTIME 14.4 Seconds (9.20-11.50)
[2019-10-28 14:12] LABS: URINE BILIRUBIN NEGATIVE (Negative); URINE BLOOD NEGATIVE (Negative); URINE CLARITY CLEAR; URINE COLOR YELLOW; URINE GLUCOSE-RANDOM NEGATIVE (Negative); URINE KETONES NEGATIVE (Negative); URINE LEUKOCYTES-REFLEX NEGATIVE (Negative); URINE NITRITE-REFLEX NEGATIVE (Negative); URINE PROTEIN NEGATIVE (Negative); URINE UROBILINOGEN 0.2 E.U./dl (0.2-1.0)
[2019-10-28 14:21] LABS: AMP/METHAMP Negative (Negative); BARBITURATES Negative (Negative); BENZODIAZEPINES Negative (Negative); COCAINE Negative (Negative); METHADONE Negative (Negative); OPIATES Negative (Negative); PCP Negative (Negative); THC Negative (Negative)
[2019-10-28] MEDS ORDERED: VENTOLIN HFA 1818 GM INH (14:40)
[2019-10-28] MEDS ORDERED: ZPAK PO (14:40)
[2019-10-28] MEDS ORDERED: NORCO 5-325 TA1 EAC2 PO (14:40)
[2019-10-28 14:51] VITALS: BP 92/46
--- NOTE | 2019-10-28 16:04 | EKG ---
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: : 1990 Requested By: Rola Moreno Order Number: [id number] MD: Valdez Nunez Measurements Intervals [place] Rate: 102 P: 67 MA: 130 QRS: 78 QRSD: 85 T: -10 QT: 314 QTc: 409 Interpretive Statements Sinus tachycardia Borderline repolarization abnormality Baseline wander in lead(s) II,III,aVR,aVL,aVF Compared to ECG 08/16/2019 00:09:46 Sinus rhythm no longer present Electronically Signed On 10-28-2019 16:04:16 CDT by Valdez Nunez [email or web address] <ELECTRONICALLY SIGNED> By: Valdez Nunez MD, FAC 10/28/19 1604 1213 1213 Valdez Nunez MD, FAC /EPI
== END 2019-10-28 14:52 | disposition home or self-care (01) ==
LOC: M.ERS 12:07
PROVIDERS: Nurse Practitioner Family
DX: S80.02XA Contusion of left knee, initial encounter (principal); R07.89 Other chest pain; R06.00 Dyspnea, unspecified; I10 Essential (primary) hypertension; M79.7 Fibromyalgia; F41.9 Anxiety disorder, unspecified; F32.9 Major depressive disorder, single episode, unspecified; Z20.828 Contact with and (suspected) exposure to other viral communicable diseases; Z86.711 Personal history of pulmonary embolism; Z98.890 Other specified postprocedural states; Z87.442 Personal history of urinary calculi; Z90.710 Acquired absence of both cervix and uterus; Z88.1 Allergy status to other antibiotic agents; Z88.2 Allergy status to sulfonamides; Z88.8 Allergy status to other drugs, medicaments and biological substances; W18.39XA Other fall on same level, initial encounter; Y93.89 Activity, other specified; Y92.834 Zoological garden (Zoo) as the place of occurrence of the external cause; Y99.8 Other external cause status

== ENCOUNTER 2019-12-03 10:13 | Inpatient (IN) | payer MEDICAID ==
[~2019-12-03] VITALS: Ht 157.5 cm; Wt 59.9 kg
[~2019-12-03 10:13] MED LIST changes: +ENOXAPARIN30 MG/0.3 SUBQ; +JANTOVEN1 MG PO; +NORCO 5-325 TA1 EAC2 PO; +VENTOLIN HFA 1818 GM INH; +ZOLOFT25 MG PO
[2019-12-03 10:20] VITALS: BP 120/45
[2019-12-03] MEDS ORDERED: TOPROL XL25 MG PO (10:26)
[2019-12-03 10:48] LABS: ABSOLUTE BASOPHILS 0.1 thou/uL (0.0-0.2); ABSOLUTE LYMPHOCYTES 4.3 thou/uL (0.8-5.3); ABSOLUTE MONOCYTES 0.8 thou/uL (0.0-1.2); ABSOLUTE NEUTROPHILS 4.4 thou/uL (1.6-8.1); BASOPHILS 0.6 %; EOSINOPHILS 0.4 %; HEMATOCRIT 36.1 % (37.0-47.0); HEMOGLOBIN 12.4 gm/dL (12.0-15.0); LYMPHOCYTES 44.8 %; MCH 30.4 pg (26.0-34.0); MCHC 34.3 g/dL (28.0-37.0); MCV 88.7 fL (80.0-100.0); MONOCYTES 8.4 %; NUCLEATED RBCS 0 /100WBC; PLATELET COUNT* 390 thou/uL (150-400); POLYS 45.8 %; RBC 4.07 mil/uL (4.20-5.00); RDW-CV 14.5 % (10.5-14.5); WBC 9.6 thou/uL (4.0-11.0)
[2019-12-03 11:24] LABS: CALCIUM 8.2 mg/dL (8.5-10.1); CREATININE 0.9 mg/dL (0.6-1.3); POTASSIUM 3.1 mmol/L (3.5-5.1)
[2019-12-03 11:39] LABS: ALBUMIN 3.8 g/dL (3.4-5.0); TOTAL BILIRUBIN 0.2 mg/dL (<0.1-1.0); TOTAL PROTEIN 6.3 g/dL (6.4-8.2)
[2019-12-03 12:04] LABS: INFLUENZA A ANTIGEN Negative (Negative); INFLUENZA B ANTIGEN Negative (Negative)
[2019-12-03 12:19] LABS: APTT 37.4 Seconds (25.0-31.3); PROTIME 59.9 Seconds (9.20-11.50)
[2019-12-03 12:21] LABS: INR 6.2
--- NOTE | 2019-12-03 15:30 | EKG ---
[place] [address] ELECTROCARDIOGRAM REPORT Name: ANAYELI PRAJAPATI Room: [place] [address] ADM IN 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
[2019-12-03 15:58] VITALS: BP 88/52
[2019-12-03 20:00] VITALS: BP 99/43
[2019-12-04] VITALS (7 sets, daily range): BP systolic 81–132; BP diastolic 40–93
[2019-12-04 04:21] LABS: PROTIME 30.1 Seconds (9.20-11.50)
[2019-12-04 04:38] LABS: HEMATOCRIT 32.1 % (37.0-47.0); HEMOGLOBIN 11.1 gm/dL (12.0-15.0); MCH 30.7 pg (26.0-34.0); MCHC 34.5 g/dL (28.0-37.0); MCV 89.1 fL (80.0-100.0); MPV 7.3 fl. (7.2-11.1); RBC 3.6 mil/uL (4.20-5.00); RDW-CV 14.2 % (10.5-14.5); WBC 8.2 thou/uL (4.0-11.0)
[2019-12-04 04:40] LABS: ANION GAP 10 mmol/L (7-16); BUN 18 mg/dL (7-18); CALCIUM 7.8 mg/dL (8.5-10.1); CHLORIDE 110 mmol/L (98-107); CO2 21 mmol/L (21-32); CREATININE 0.8 mg/dL (0.6-1.3); GLUCOSE 90 mg/dL (70-99); POTASSIUM 3.9 mmol/L (3.5-5.1); SODIUM 141 mmol/L (136-145); TROPONIN-I LEVEL <0.06 ng/mL (<0.06)
[2019-12-04 05:45] LABS: INR 3.1
[2019-12-05] VITALS (7 sets, daily range): BP systolic 87–104; BP diastolic 6–64
[2019-12-05 04:52] LABS: HEMATOCRIT 33.9 % (37.0-47.0); HEMOGLOBIN 11.9 gm/dL (12.0-15.0); MCH 31.2 pg (26.0-34.0); MCHC 35.1 g/dL (28.0-37.0); MCV 89.1 fL (80.0-100.0); MPV 6.9 fl. (7.2-11.1); RBC 3.8 mil/uL (4.20-5.00); RDW-CV 14.2 % (10.5-14.5); WBC 8.2 thou/uL (4.0-11.0)
[2019-12-05 05:16] LABS: CALCIUM 8.3 mg/dL (8.5-10.1); CREATININE 0.6 mg/dL (0.6-1.3); POTASSIUM 3.3 mmol/L (3.5-5.1); PROTIME 11.6 Seconds (9.20-11.50)
[2019-12-05 05:17] LABS: INR 1.1
--- NOTE | 2019-12-05 16:03 | 2DMMODE ---
[place] [address] 2 D/M-MODE ECHOCARDIOGRAM Name: ANAYELI PRAJAPATI Room: [address] ADM IN .R.#: [id number] Admission: 12/03/19 Attend Phys: Octavio Whaley Discharge: Date of : [birth year] Date of Service: 12/05/19 1603 Report #: [id number] THIS REPORT FOR: cc: [facility] - Clinic physician unknown [facility] - Clinic physician unknown Raghu Stallings MD [facility] ~ APPROVED REPORT Study performed: 12/05/2019 14:25:41 EXAM: Comprehensive 2D, Doppler, and color-flow Echocardiogram Patient Location: Bedside BSA: 1.60 HR: 67 bpm BP: 92/54 mmHg Other Information Study Quality: Good Indications Pulmonary Embolism 2D Dimensions IVSd: 9.77 (7-11mm) LVOT Diam: 19.65 (18-24mm) LVDd: 33.18 mm PWd: 10.07 (7-11mm) Ascending Ao: 26.95 (22-36mm) LVDs: 24.05 (25-40mm) Aortic Root: 26.73 mm Volumes Left Atrial Volume (Systole) LA ESV Index: 14.00 mL/m2 Aortic Valve AoV Peak Bartolome.: 0.96 m/s AO Peak Gr.: 3.72 mmHg LVOT Max P.31 mmHg AO Mean Gr.: 2.22 mmHg LVOT Mean P.08 mmHg LVOT Max V: 0.76 m/s AO V2 VTI: 17.66 cm LVOT Mean V: 0.47 m/s KENIA (VTI): 2.71 cm2 LVOT V1 VTI: 15.77 cm Mitral Valve E/A Ratio: 1.86 [place] [address] 2 D/M-MODE ECHOCARDIOGRAM Name: ANAYELI PRAJAPATI Room: [address] IN [facility]#: [id number] Admission: 12/03/19 Attend Phys: Octavio Whaley Discharge: Date of : [birth year] Date of Service: 12/05/19 1603 Report #: [id number] MV Decel. Time: 194.76 ms MV E Max Bartolome.: 0.72 m/s MV PHT: 56.48 ms MVA (PHT): 3.90 cm2 TDI E/Lateral E': 5.14 E/Medial E': 7.20 Medial E' Bartolome.: 0.10 m/s Lateral E' Bartolome.: 0.14 m/s Pulmonary Valve PV Peak Bartolome.: 0.95 m/s PV Peak Gr.: 3.58 mmHg Tricuspid Valve RAP Estimate: 5.00 mmHg TR Peak Gr.: 22.03 mmHg RVSP: 27.03 mmHg PA Pressure: 27.03 mmHg Left Ventricle The left ventricle is normal size. There is normal LV segmental wall motion. There is normal left ventricular wall thickness. Left ventricular systolic function is normal. The left ventricular ejection fraction is within the normal range. LVEF is 55-60%. The left ventricular diastolic function is normal. Right Ventricle The right ventricle is normal size. The right ventricular systolic function is normal. Atria The left atrium size is normal. Right atrium is mildly dilated. Aortic Valve The aortic valve is normal in structure. No aortic regurgitation is present. There is no aortic valvular stenosis. Mitral Valve The mitral valve is normal in structure. Mild mitral regurgitation. No evidence of mitral valve stenosis. Tricuspid Valve The tricuspid valve is normal in structure. Trace tricuspid regurgitation[place] [address] 2 D/M-MODE ECHOCARDIOGRAM Name: ANAYELI PRAJAPATI Room: [address]#: [id number] Admission: 12/03/19 Attend Phys: Octavio Whaley Discharge: Date of : [birth year] Date of Service: 12/05/19 1603 Report #: [id number] The pulmonary valve is normal in structure. There is no pulmonic valvular regurgitation. Great Vessels The aortic root is normal in size. IVC is normal in size and collapses >50% with inspiration. Pericardium There is no pericardial effusion. <Conclusion> The left ventricle is normal size. There is normal left ventricular wall thickness. Left ventricular systolic function is normal. The left ventricular ejection fraction is within the normal range. LVEF is 55-60%. The left ventricular diastolic function is normal. The right ventricle is normal size. The left atrium size is normal. The aortic valve is normal in structure. The mitral valve is normal in structure. Mild mitral regurgitation. The tricuspid valve is normal in structure. IVC is normal in size and collapses >50% with inspiration. There is no pericardial effusion. There is normal LV segmental wall motion. <ELECTRONICALLY SIGNED> By: Raghu Stallings MD, FACC 12/05/19 1603 02 160 Raghu Stallings MD, FACC /INF
[2019-12-06] VITALS: BP 85/58
[2019-12-06 05:21] LABS: PROTIME 10.7 Seconds (9.20-11.50)
[2019-12-06 05:24] LABS: ABSOLUTE LYMPHOCYTES 1.6 thou/uL (0.8-5.3); ABSOLUTE MONOCYTES 0.2 thou/uL (0.0-1.2); ABSOLUTE NEUTROPHILS 8.8 thou/uL (1.6-8.1); BASOPHILS 0.1 %; HEMATOCRIT 38.2 % (37.0-47.0); HEMOGLOBIN 13.2 gm/dL (12.0-15.0); MCH 30.6 pg (26.0-34.0); MCHC 34.6 g/dL (28.0-37.0); MCV 88.5 fL (80.0-100.0); MONOCYTES 2.3 %; MPV 7.2 fl. (7.2-11.1); NUCLEATED RBCS 0 /100WBC; PLATELET COUNT* 434 thou/uL (150-400); POLYS 82.6 %; RBC 4.32 mil/uL (4.20-5.00); RDW-CV 14.3 % (10.5-14.5); WBC 10.7 thou/uL (4.0-11.0)
[2019-12-06 05:26] LABS: CALCIUM 9.2 mg/dL (8.5-10.1); CREATININE 0.8 mg/dL (0.6-1.3); MAGNESIUM 2.2 mg/dL (1.8-2.4)
[2019-12-06 05:30] LABS: POTASSIUM 5.1 mmol/L (3.5-5.1)
[2019-12-06 08:00] VITALS: BP 104/54
[2019-12-06 16:00] VITALS: BP 101/63
[2019-12-06 23:40] VITALS: BP 101/42
[2019-12-07 08:00] VITALS: BP 89/52
[2019-12-07 10:35] LABS: INR 1.2; PROTIME 12.1 Seconds (9.20-11.50)
[2019-12-07 12:00] VITALS: BP 93/45
[2019-12-07] MEDS ORDERED: PROMS25 WY RECTAL (14:27)
[2019-12-07] MEDS ORDERED: IPRAT-ALBUT 0.5-3 ML INH (14:29)
[2019-12-07] MEDS ORDERED: HYDROCODON-ACE1 EAC7 PO (14:30)
[2019-12-07] MEDS ORDERED: PULMICORT0.5 MG/2 M INH (14:32)
[2019-12-07] MEDS ORDERED: CEFDINIR300 MG PO (14:35)
[2019-12-07] MEDS ORDERED: METOPROLOL SUCC25 M1 PO (14:40)
[2019-12-07] MEDS ORDERED: CLONAZEPAM 0.50.5 M1 PO (14:40)
[2019-12-07] MEDS ORDERED: ENOXAPARIN60 MG/0.6 SUBQ (14:42)
[2019-12-07 16:00] VITALS: BP 115/75
[2019-12-07 16:06] VITALS: BP 93/45
[2019-12-07 16:19] VITALS: BP 93/45
[2019-12-09 16:06] LABS: ANA INTERPRETATION Negative (())
--- NOTE | 2019-12-10 23:19 | CON ---
[address] [address] CONSULTATION Name: ANAYELI PRAJAPATI Room: [address] IN [facility].#: [id number] Admission: 12/03/19 Attend Phys: Octavio Collier, Discharge: 12/07/19 Date of : [birth year] Report #: [id number] THIS REPORT FOR: //name// cc: [facility] physician unknown [facility] physician unknown ~ THIS REPORT FOR: //name// CC: [facility] unknown [facility] Octavio Collier DATE OF SERVICE: 12/05/2019 REQUESTING PHYSICIAN: Dr. Collier. INDICATION FOR CONSULTATION: History of acute pulmonary emboli with acute bronchitis. HISTORY OF PRESENT ILLNESS: A 29-year-old female with past medical history as mentioned below. The patient is a smoker. The patient reports that she has not been using any hormonal contraception. The patient says that she was well until around September and previously did not have a history of any cardiac or respiratory disease. The patient says that she presented to [place] in September. I do not have records available and at that time, was having shortness of breath and chest pain with respirations. Also, was having hemoptysis. The patient states that she had a CT performed based on which she was diagnosed with acute pulmonary emboli. The patient reports being active prior to this occurring with the exception that for the last few days prior to her admission to [place]. She says that she had a low-grade fever up to 100 degrees Fahrenheit and had respiratory complaints as described. The patient was also having episodes of dizziness. This was also of acute onset. The patient was initially started on Xarelto; however, she reports having had GI complaints with Xarelto and therefore, was switched over to Lovenox and then transitioned to Coumadin by [facility]. The patient states that there was a question as to whether there could be a cardiac origin of some clots as well and that she has had an echo performed at [place]; however, she does not know of the results. She also had had an vehicle monitor technician placed for 30 days, but she says that she did not get to turning it in to [place] when she got more sick again and came to the Emergency Room here. The patient does not report any history of COVID-19 and does not report any exposures to COVID-19. The patient is now admitted here 2 days ago, presentation is with increase in shortness of breath as well as hemoptysis. The patient also reports that she had chest pain with respiration and coughing. She does not report a more recent fever, runny nose or sore throat. She has not had any significant swelling of lower extremities or calf pain. The patient did [place] [address] CONSULTATION Name: ANAYELI PRAJAPATI Room: [address] IN [facility].#: [id number] Admission: 12/03/19 Attend Phys: Octavio Collier, Discharge: 12/07/19 Date of : [birth year] Report #: [id number] particularly in the right lower quadrant. She has had some nausea as well. The patient's initial chest x-ray did not show any new findings. INR was elevated to 6.2. She did receive vitamin K in the Emergency Room, INR since then has gradually decreased to 1.1. The patient, however, complains of ongoing shortness of breath as well as cough, a small amount of hemoptysis still. She still has some chest pain with respiration and coughing and still has nausea. The abdominal pain appears to have subsided. She has had some subjective feeling of fever recently, however, has not had a documented fever recently, COVID-19 screen was negative. REVIEW OF SYSTEMS: The patient answered to the negative for 12 questions for review of systems except as mentioned above. PAST MEDICAL AND SURGICAL HISTORY: Recent acute pulmonary emboli as described above, , depression, hypertension, kidney stone, cholecystectomy, hysterectomy, scoliosis, fibromyalgia, anxiety, depression. CURRENT MEDICATIONS: List in [email or web address] reviewed. HOME MEDICATIONS: List in [email or web address] reviewed. Also, see discussion above. FAMILY HISTORY: There is no pertinent family history known at this time. SOCIAL HISTORY: Smoker, half a pack a day. No known history of heavy alcohol use or illegal drug use. No known history of hormonal contraception use. PHYSICAL EXAMINATION: GENERAL: She is alert, awake and oriented, does not appear to be in any distress at this time. VITAL SIGNS: Has a pulse of 85 and a blood pressure of 92/43, however, it appears that she has been running low and still is well perfused, is not on supplemental oxygen. She is saturating in the high 90s around 98%. Her respiratory rate is 16-18. She is afebrile with temperature of 36.8. HEENT: Head is normocephalic and atraumatic. Pupils are equal and reactive. There is no throat erythema. There is no thrush in her throat. Her airway, however, is narrow. Mallampati is 4. NECK: Does not show raised JVP, asymmetry, mass or lymph nodes. CHEST: Symmetrical expansion on inspection and palpation. On auscultation, breath sounds are bilaterally equal, but decreased. Expirations are prolonged. I do not hear any added sounds. There is a subjective feeling of pain on palpation of lateral aspects of the chest; however, I do not see any definite tenderness or skin changes in the region of pain described. HEART: Regular, no murmur. ABDOMEN: Soft and nontender. EXTREMITIES: Lower extremities show no edema, no calf tenderness. [place]IN: [place] [address] CONSULTATION Name: ANAYELI PRAJAPATI Room: [address]#: [id number] Admission: 12/03/19 Attend Phys: Octavio Collier, Discharge: 12/07/19 Date of : [birth year] Report #: [id number] NEUROLOGICAL: Moves all extremities bilaterally equally and spontaneously with no focal deficit identified. LABORATORY DATA: The patient's chest x-ray done 2 days ago is reviewed and compared to the patient's previous chest x-rays. There is some volume loss on the left side. There is a vague radiopaque density in the left side; however, I also see this on the previous x-rays, I do not see any pertinent findings on her previous CT chest. This is prior to her reported history of CTA chest, which showed pulmonary emboli per the patient. There are no acute findings. There is hyperinflation. The patient's lab work including CBC as well as chemistries, coagulation studies, and COVID-19 screen are in [facility]. These are reviewed. ASSESSMENT AND PLAN: 1. Acute pulmonary emboli for what the patient is prescribed she had a spontaneous clot considering persistent complaints as described above and I feel that we need to image her chest in more detail and therefore, despite the low D-dimer, I decided to go ahead and obtain a CTA chest. The patient has tolerated IV dye previously and it will be fairly low risk to give her IV dye again. We will advise further after reviewing the CT, but at this time, I am inclined to suggest resuming anticoagulation. If Coumadin is started, suggest bring her INR up to around 2.0. Other anticoagulants can also be used. The patient is a potential candidate for lifelong anticoagulation if the history she describes is correct, suggest obtaining records from [facility]. Meanwhile, I will also evaluate further by obtaining a hypercoagulability profile. I want look at the right heart pressures and the patient says that there was some question about cardiac thrombus as well at some point and therefore, I would go ahead and obtain a 2D echocardiogram as well. 2. Bronchospasm. It appears to me that there is a component of bronchospasm as well. There is some hyperinflation of the patient's chest x-ray as well. This needs to be evaluated further as an outpatient with pulmonary function test. Meanwhile, I agree with continuing with DuoNeb as well as budesonide and I will add Solu-Medrol. 3. Acute bronchitis/possible pneumonia. She is on ceftriaxone, reassess after CT is performed. 4. Hypokalemia, already being replaced. 5. Nausea/DVT prophylaxis. She has been having some upper GI complaints. We will go ahead and give her Protonix. 6. Narrow airway. Note that she has a Mallampati class 4 airway. We will review further and assess as to whether evaluation for sleep apnea is indicated. Thanks for this consultation. <ELECTRONICALLY SIGNED> By: Valentino Duran MD 12/10/19 2319 1204 1359Abandar Duran MD /nt
== END 2019-12-07 17:10 | disposition home or self-care (01) | DRG 202 ==
LOC: M.ERS 10:13 → M.2W 14:52 → M.TBA-ER 14:52 → M.2W 17:00
PROVIDERS: Internal Medicine Critical Care Medicine; Nurse Practitioner Family; ADMIT Family Medicine; ATTEND Family Medicine
DX: J20.9 Acute bronchitis, unspecified (principal); J45.901 Unspecified asthma with (acute) exacerbation; R04.2 Hemoptysis; I10 Essential (primary) hypertension; F41.9 Anxiety disorder, unspecified; F32.9 Major depressive disorder, single episode, unspecified; M79.7 Fibromyalgia; M41.9 Scoliosis, unspecified; E87.6 Hypokalemia; F17.210 Nicotine dependence, cigarettes, uncomplicated; Z20.828 Contact with and (suspected) exposure to other viral communicable diseases; Z90.710 Acquired absence of both cervix and uterus; Z98.891 History of uterine scar from previous surgery; Z79.01 Long term (current) use of anticoagulants; Z79.899 Other long term (current) drug therapy; Z88.1 Allergy status to other antibiotic agents; Z88.2 Allergy status to sulfonamides; Z88.8 Allergy status to other drugs, medicaments and biological substances

== ENCOUNTER 2020-01-08 18:42 | Emergency (ER) | payer OTHER ==
[~2020-01-08] VITALS: Ht 157.5 cm; Wt 54.0 kg
[~2020-01-08 18:42] MED LIST changes: +CEFDINIR300 MG PO; +ENOXAPARIN60 MG/0.6 SUBQ; +IPRAT-ALBUT 0.5-3 ML INH; +METOPROLOL SUCC25 M1 PO; +PULMICORT0.5 MG/2 M INH; +TOPROL XL25 MG PO
[2020-01-08] MEDS ORDERED: OLANZAPINE ODT5 MG PO (19:07)
[2020-01-08 21:36] LABS: URINE BILIRUBIN NEGATIVE (Negative); URINE BLOOD NEGATIVE (Negative); URINE CLARITY CLEAR; URINE COLOR YELLOW; URINE GLUCOSE-RANDOM NEGATIVE (Negative); URINE KETONES NEGATIVE (Negative); URINE LEUKOCYTES-REFLEX NEGATIVE (Negative); URINE NITRITE-REFLEX NEGATIVE (Negative); URINE PROTEIN NEGATIVE (Negative); URINE SPECIFIC GRAVITY 1.015 (1.005-1.030); URINE UROBILINOGEN 0.2 E.U./dl (0.2-1.0)
[2020-01-08 21:45] LABS: ABSOLUTE EOSINOPHILS 0.1 thou/uL (0.0-0.7); ABSOLUTE LYMPHOCYTES 2.8 thou/uL (0.8-5.3); ABSOLUTE MONOCYTES 0.6 thou/uL (0.0-1.2); ABSOLUTE NEUTROPHILS 4.5 thou/uL (1.6-8.1); BASOPHILS 0.6 %; EOSINOPHILS 0.9 %; HEMATOCRIT 37.6 % (37.0-47.0); HEMOGLOBIN 12.6 gm/dL (12.0-15.0); LYMPHOCYTES 35.2 %; MCH 30.5 pg (26.0-34.0); MCHC 33.5 g/dL (28.0-37.0); MONOCYTES 7.1 %; MPV 6.7 fl. (7.2-11.1); NUCLEATED RBCS 0 /100WBC; PLATELET COUNT* 429 thou/uL (150-400); POLYS 56.2 %; RBC 4.13 mil/uL (4.20-5.00); RDW-CV 13.4 % (10.5-14.5)
[2020-01-08 21:58] LABS: CALCIUM 8.5 mg/dL (8.5-10.1); CREATININE 0.8 mg/dL (0.6-1.3); POTASSIUM 4.2 mmol/L (3.5-5.1)
[2020-01-08 22:02] LABS: ALBUMIN 3.6 g/dL (3.4-5.0); TOTAL BILIRUBIN 0.3 mg/dL (<0.1-1.0); TOTAL PROTEIN 6.7 g/dL (6.4-8.2)
[2020-01-08] MEDS ORDERED: NORCO 5-325 TA1 EAC2 PO (22:42)
[2020-01-08] MEDS ORDERED: ZOFRAN ODT4 MG DISSOLVE (22:42)
[2020-01-08 23:05] LABS: INR 1.4; PROTIME 14.3 Seconds (9.20-11.50)
[2020-01-08 23:35] VITALS: BP 114/74
== END 2020-01-08 23:36 | disposition home or self-care (01) ==
LOC: M.ERS 18:42
PROVIDERS: Emergency Medicine Emergency Medical Services; Nurse Practitioner Family
DX: R10.31 Right lower quadrant pain (principal); I10 Essential (primary) hypertension; M79.7 Fibromyalgia; M41.9 Scoliosis, unspecified; F17.210 Nicotine dependence, cigarettes, uncomplicated; Z88.2 Allergy status to sulfonamides; Z88.1 Allergy status to other antibiotic agents; Z98.890 Other specified postprocedural states; Z86.711 Personal history of pulmonary embolism; Z87.442 Personal history of urinary calculi; Z90.710 Acquired absence of both cervix and uterus

== ENCOUNTER 2020-01-17 14:10 | Emergency (ER) | payer OTHER ==
[~2020-01-17] VITALS: Ht 157.5 cm; Wt 54.4 kg
[~2020-01-17 14:10] MED LIST changes: +OLANZAPINE ODT5 MG PO; +ZOFRAN ODT4 MG DISSOLVE
[2020-01-17] MEDS ORDERED: ENOXAPARIN60 MG/0.6 SUBQ (14:57)
[2020-01-17 15:19] LABS: ABSOLUTE EOSINOPHILS 0.1 thou/uL (0.0-0.7); ABSOLUTE LYMPHOCYTES 2.4 thou/uL (0.8-5.3); ABSOLUTE MONOCYTES 0.5 thou/uL (0.0-1.2); ABSOLUTE NEUTROPHILS 2.6 thou/uL (1.6-8.1); BASOPHILS 0.5 %; EOSINOPHILS 1.3 %; HEMATOCRIT 37.8 % (37.0-47.0); HEMOGLOBIN 12.7 gm/dL (12.0-15.0); LYMPHOCYTES 43.4 %; MCH 30.5 pg (26.0-34.0); MCHC 33.7 g/dL (28.0-37.0); MCV 90.4 fL (80.0-100.0); MONOCYTES 8.6 %; MPV 7.1 fl. (7.2-11.1); NUCLEATED RBCS 0 /100WBC; PLATELET COUNT* 356 thou/uL (150-400); POLYS 46.2 %; RBC 4.18 mil/uL (4.20-5.00); RDW-CV 13.1 % (10.5-14.5); WBC 5.6 thou/uL (4.0-11.0)
[2020-01-17 15:21] LABS: URINE BILIRUBIN NEGATIVE (Negative); URINE BLOOD 3+ (Negative); URINE CLARITY TURBID; URINE COLOR YELLOW; URINE GLUCOSE-RANDOM NEGATIVE (Negative); URINE KETONES NEGATIVE (Negative); URINE LEUKOCYTES-REFLEX 3+ (Negative); URINE NITRITE-REFLEX NEGATIVE (Negative); URINE PROTEIN NEGATIVE (Negative); URINE SPECIFIC GRAVITY <= 1.005 (1.005-1.030); URINE UROBILINOGEN 0.2 E.U./dl (0.2-1.0)
[2020-01-17 15:26] LABS: CALCIUM 8.5 mg/dL (8.5-10.1); CREATININE 0.6 mg/dL (0.6-1.3); POTASSIUM 3.9 mmol/L (3.5-5.1)
[2020-01-17 15:27] LABS: BACTERIA-REFLEX >30 Many /HPF (None Seen); CASTS None Seen /LPF (None Seen); CRYSTALS None Seen /LPF (None Seen); SQUAMOUS >10 Many /LPF (0-3); URINE RBC 0-2 Rare /HPF (0-2); URINE WBC-REFLEX 6-15 Few /HPF (0-5)
[2020-01-17 15:31] LABS: ALBUMIN 3.5 g/dL (3.4-5.0); TOTAL BILIRUBIN 0.1 mg/dL (<0.1-1.0); TOTAL PROTEIN 6.3 g/dL (6.4-8.2)
[2020-01-17] MEDS ORDERED: NORCO 5-325 TA1 EAC2 PO (16:19)
[2020-01-17] MEDS ORDERED: MACROBID 100 M100 MG PO (16:19)
[2020-01-17 16:45] VITALS: BP 110/72
== END 2020-01-17 16:45 | disposition home or self-care (01) ==
LOC: M.ERS 14:10
PROVIDERS: Physician Assistant
DX: N39.0 Urinary tract infection, site not specified (principal); I10 Essential (primary) hypertension; M79.7 Fibromyalgia; F17.210 Nicotine dependence, cigarettes, uncomplicated; Z98.890 Other specified postprocedural states; Z88.1 Allergy status to other antibiotic agents; Z88.2 Allergy status to sulfonamides; Z79.01 Long term (current) use of anticoagulants; Z79.899 Other long term (current) drug therapy; Z87.442 Personal history of urinary calculi; Z90.710 Acquired absence of both cervix and uterus

== ENCOUNTER 2020-01-22 20:52 | Emergency (ER) | payer OTHER ==
[~2020-01-22] VITALS: Ht 157.5 cm; Wt 54.4 kg
[~2020-01-22 20:52] MED LIST changes: +MACROBID 100 M100 MG PO
[2020-01-22] MEDS ORDERED: PERCOCET 5-3251 EACH PO (21:11)
[2020-01-22 21:35] LABS: URINE BILIRUBIN NEGATIVE (Negative); URINE BLOOD NEGATIVE (Negative); URINE COLOR YELLOW; URINE GLUCOSE-RANDOM NEGATIVE (Negative); URINE KETONES NEGATIVE (Negative); URINE LEUKOCYTES-REFLEX 1+ (Negative); URINE NITRITE-REFLEX NEGATIVE (Negative); URINE PROTEIN NEGATIVE (Negative); URINE SPECIFIC GRAVITY <= 1.005 (1.005-1.030); URINE UROBILINOGEN 0.2 E.U./dl (0.2-1.0)
[2020-01-22 21:36] LABS: URINE CLARITY SL CLOUDY
[2020-01-22 21:46] LABS: BACTERIA-REFLEX >30 Many /HPF (None Seen); CASTS None Seen /LPF (None Seen); CRYSTALS None Seen /LPF (None Seen); MUCUS 4-6 Moderate strn/LPF (None Seen); SQUAMOUS >10 Many /LPF (0-3); TRANSITIONAL EPITHEL CELL 0-3 Few /LPF (None Seen); URINE RBC 3-10 Few /HPF (0-2); WBC CLUMPS Few (None Seen)
[2020-01-22 22:29] LABS: ABSOLUTE EOSINOPHILS 0.1 thou/uL (0.0-0.7); ABSOLUTE LYMPHOCYTES 2.9 thou/uL (0.8-5.3); ABSOLUTE MONOCYTES 0.6 thou/uL (0.0-1.2); ABSOLUTE NEUTROPHILS 3.8 thou/uL (1.6-8.1); BASOPHILS 0.6 %; EOSINOPHILS 1.3 %; HEMATOCRIT 35.6 % (37.0-47.0); LYMPHOCYTES 39.1 %; MCH 30.2 pg (26.0-34.0); MCHC 33.8 g/dL (28.0-37.0); MCV 89.3 fL (80.0-100.0); MONOCYTES 7.9 %; MPV 6.7 fl. (7.2-11.1); NUCLEATED RBCS 0 /100WBC; PLATELET COUNT* 367 thou/uL (150-400); POLYS 51.1 %; RBC 3.98 mil/uL (4.20-5.00); WBC 7.4 thou/uL (4.0-11.0)
[2020-01-22 22:36] LABS: CALCIUM 8.4 mg/dL (8.5-10.1); CREATININE 0.7 mg/dL (0.6-1.3); POTASSIUM 4.3 mmol/L (3.5-5.1)
[2020-01-22 22:41] LABS: ALBUMIN 3.4 g/dL (3.4-5.0); TOTAL BILIRUBIN 0.2 mg/dL (<0.1-1.0); TOTAL PROTEIN 6.2 g/dL (6.4-8.2)
[2020-01-22 23:37] VITALS: BP 100/60
== END 2020-01-22 23:38 | disposition home or self-care (01) ==
LOC: M.ERS 20:52
PROVIDERS: Personal Emergency Response Attendant
DX: G89.4 Chronic pain syndrome (principal); F11.10 Opioid abuse, uncomplicated; I10 Essential (primary) hypertension; M79.7 Fibromyalgia; M41.9 Scoliosis, unspecified; F17.210 Nicotine dependence, cigarettes, uncomplicated; Z76.5 Malingerer [conscious simulation]; Z88.1 Allergy status to other antibiotic agents; Z88.2 Allergy status to sulfonamides; Z88.8 Allergy status to other drugs, medicaments and biological substances; Z98.890 Other specified postprocedural states; Z87.442 Personal history of urinary calculi; Z90.710 Acquired absence of both cervix and uterus; Z86.711 Personal history of pulmonary embolism

== ENCOUNTER 2020-02-15 16:19 | Emergency (ER) | payer OTHER ==
[~2020-02-15] VITALS: Ht 157.5 cm; Wt 53.5 kg
[2020-02-15 16:42] VITALS: BP 134/55
== END 2020-02-15 16:45 | disposition home or self-care (01) ==
LOC: M.ERS 16:19
DX: R51.9 Headache, unspecified (principal); I10 Essential (primary) hypertension; M79.7 Fibromyalgia; F17.210 Nicotine dependence, cigarettes, uncomplicated; Z79.899 Other long term (current) drug therapy; Z79.01 Long term (current) use of anticoagulants; Z88.1 Allergy status to other antibiotic agents; Z88.8 Allergy status to other drugs, medicaments and biological substances; Z87.442 Personal history of urinary calculi; Z90.49 Acquired absence of other specified parts of digestive tract

== ENCOUNTER 2020-06-25 14:31 | Emergency (ER) | payer OTHER, MEDICAID ==
[~2020-06-25] VITALS: Ht 162.6 cm; Wt 59.0 kg
[2020-06-25] MEDS ORDERED: WARFARIN SODIUM3 MG PO (14:46)
[2020-06-25] MEDS ORDERED: HYDROXYZINE HCL25 M2 PO (14:46)
[2020-06-25] MEDS ORDERED: CYCLOBENZAPRINE5 MG PO (14:46)
[2020-06-25] MEDS ORDERED: BUSPAR30 MG PO (14:47)
[2020-06-25] MEDS ORDERED: LAMICTAL XR25 MG PO (14:47)
[2020-06-25 15:17] LABS: INR 1.9; PROTIME 19.4 Seconds (9.20-11.50)
[2020-06-25 16:18] VITALS: BP 97/50
== END 2020-06-25 16:19 | disposition home or self-care (01) ==
LOC: M.ERS 14:31
PROVIDERS: Emergency Medicine Emergency Medical Services
DX: S06.0X0A Concussion without loss of consciousness, initial encounter (principal); M54.2 Cervicalgia; I10 Essential (primary) hypertension; M79.7 Fibromyalgia; M41.9 Scoliosis, unspecified; F17.210 Nicotine dependence, cigarettes, uncomplicated; Z98.890 Other specified postprocedural states; Z87.442 Personal history of urinary calculi; Z90.710 Acquired absence of both cervix and uterus; Z86.711 Personal history of pulmonary embolism; Z88.1 Allergy status to other antibiotic agents; Z88.2 Allergy status to sulfonamides; Z88.8 Allergy status to other drugs, medicaments and biological substances; W18.39XA Other fall on same level, initial encounter; Y93.89 Activity, other specified; Y92.89 Other specified places as the place of occurrence of the external cause; Y99.8 Other external cause status

== ENCOUNTER 2021-01-04 11:33 | Emergency (ER) | payer OTHER, MEDICAID ==
[~2021-01-04] VITALS: Ht 157.5 cm; Wt 68.0 kg
[~2021-01-04 11:33] MED LIST changes: +BUSPAR30 MG PO; +CYCLOBENZAPRINE5 MG PO; +HYDROXYZINE HCL25 M2 PO; +LAMICTAL XR25 MG PO; +WARFARIN SODIUM3 MG PO
[2021-01-04] MEDS ORDERED: FLOVENT DISKUS50 MCG INH (11:51)
[2021-01-04] MEDS ORDERED: TOPROL XL25 MG PO (11:51)
[2021-01-04 12:19] LABS: ABSOLUTE BASOPHILS 0.1 thou/uL (0.0-0.2); ABSOLUTE EOSINOPHILS 0.2 thou/uL (0.0-0.7); ABSOLUTE MONOCYTES 0.7 thou/uL (0.0-1.2); ABSOLUTE NEUTROPHILS 5.1 thou/uL (1.6-8.1); BASOPHILS 0.9 %; EOSINOPHILS 2.2 %; HEMATOCRIT 37.1 % (37.0-47.0); HEMOGLOBIN 12.7 gm/dL (12.0-15.0); MCH 28.9 pg (26.0-34.0); MCHC 34.2 g/dL (28.0-37.0); MCV 84.5 fL (80.0-100.0); MONOCYTES 7.7 %; MPV 6.6 fl. (7.2-11.1); NUCLEATED RBCS 0 /100WBC; PLATELET COUNT* 435 thou/uL (150-400); POLYS 56.2 %; RBC 4.39 mil/uL (4.20-5.00); RDW-CV 14.7 % (10.5-14.5); WBC 9.1 thou/uL (4.0-11.0)
[2021-01-04 12:28] LABS: CALCIUM 8.1 mg/dL (8.5-10.1); CREATININE 0.7 mg/dL (0.6-1.3); POTASSIUM 4.2 mmol/L (3.5-5.1)
[2021-01-04 12:29] LABS: INR 1.6; PROTIME 16.1 Seconds (9.20-11.50)
[2021-01-04 12:38] LABS: ALBUMIN 3.2 g/dL (3.4-5.0); MAGNESIUM 2.4 mg/dL (1.8-2.4); TOTAL BILIRUBIN 0.2 mg/dL (<0.1-1.0); TOTAL PROTEIN 6.1 g/dL (6.4-8.2)
[2021-01-04] MEDS ORDERED: ZPAK PO (13:02)
[2021-01-04] MEDS ORDERED: FLEXERIL PO (13:02)
[2021-01-04] MEDS ORDERED: ROBITUSSIN COU237 M2 PO (13:02)
[2021-01-04 13:14] VITALS: BP 114/70
--- NOTE | 2021-01-05 09:03 | EKG ---
[place] [address] ELECTROCARDIOGRAM REPORT Name: ANAYELI PRAJAPATI Room: [facility]#: [id number] Admission: 01/04/21 Attend Phys: Discharge: 01/04/21 Date of : [birth year] Date of Service: 01/04/21 1235 Report #: [id number] THIS REPORT FOR: //name// [facility] ED Test Date: 2021-01-04 Test Time: 12:35:51 Pat Name: ANAYELI PRAJAPATI Department: Room: Gender: F Teaching Manager: CD : 1990 Requested By: Rola Moreno Order Number: [id number] MD: Kiran Gallagher Measurements Intervals [place] Rate: 65 P: 45 [place]: 121 QRS: 67 QRSD: 85 T: 61 QT: 379 QTc: 394 Interpretive Statements Sinus rhythm ST elev, probable normal early repol pattern Compared to ECG 12/03/2019 10:38:54 ST (T wave) deviation now present Electronically Signed On 01-05-2021 9:03:24 CDT by Kiran Gallagher [email or web address] <ELECTRONICALLY SIGNED> By: Kiran Gallagher MD, FACC 01/05/21 0903 1235 1235 Kiran Gallagher MD, [facility] /EPI
== END 2021-01-04 13:15 | disposition home or self-care (01) ==
LOC: M.ERS 11:33
PROVIDERS: Nurse Practitioner Family
DX: J20.9 Acute bronchitis, unspecified (principal); R05.9 Cough, unspecified; F32.9 Major depressive disorder, single episode, unspecified; I10 Essential (primary) hypertension; F41.9 Anxiety disorder, unspecified; F20.9 Schizophrenia, unspecified; F17.210 Nicotine dependence, cigarettes, uncomplicated; Z79.899 Other long term (current) drug therapy; Z90.710 Acquired absence of both cervix and uterus; Z88.2 Allergy status to sulfonamides; Z88.0 Allergy status to penicillin; Z88.9 Allergy status to unspecified drugs, medicaments and biological substances

== ENCOUNTER 2021-01-25 12:12 | Emergency (ER) | payer OTHER, MEDICAID ==
[~2021-01-25] VITALS: Ht 157.5 cm; Wt 68.0 kg
[~2021-01-25 12:12] MED LIST changes: +FLEXERIL PO; +FLOVENT DISKUS50 MCG INH; +ROBITUSSIN COU237 M2 PO
[2021-01-25] MEDS ORDERED: JANTOVEN2.5 MG PO (12:26)
[2021-01-25] MEDS ORDERED: JANTOVEN5 MG PO (12:26)
[2021-01-25 13:14] LABS: HEMOGLOBIN 13.4 gm/dL (12.0-15.0); MCH 28.3 pg (26.0-34.0); MCHC 33.4 g/dL (28.0-37.0); MCV 84.7 fL (80.0-100.0); MPV 6.9 fl. (7.2-11.1); RBC 4.72 mil/uL (4.20-5.00); RDW-CV 14.8 % (10.5-14.5); WBC 7.2 thou/uL (4.0-11.0)
[2021-01-25 13:21] LABS: CREATININE 0.6 mg/dL (0.6-1.3); POTASSIUM 4.4 mmol/L (3.5-5.1)
[2021-01-25 13:28] LABS: INR 1.4; PROTIME 14.2 Seconds (9.20-11.50)
[2021-01-25 13:57] VITALS: BP 124/72
--- NOTE | 2021-01-26 09:29 | EKG ---
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 : 1990 Requested By: Christian Uriarte Order Number: [id number] MD: Valdez Nunez Measurements Intervals [place] Rate: 71 P: 67 [place]: 135 QRS: 71 QRSD: 79 T: 67 QT: 367 QTc: 399 Interpretive Statements Sinus rhythm Nonspecific T abnrm, anterolateral leads ST elev, probable normal early repol pattern Artifact in lead(s) I,II,III,aVR,aVL,aVF Compared to ECG 01/04/2021 12:35:51 No significant changes Electronically Signed On 01-26-2021 9:29:40 STUNT PERFORMER by Valdez Nunez [email or web address] <ELECTRONICALLY SIGNED> By: Valdez Nunez MD, [facility] 01/26/21 0929 16 16 Valdez Nunez MD, [facility] /EPI
== END 2021-01-25 13:58 | disposition home or self-care (01) ==
LOC: M.ERS 12:12
PROVIDERS: Emergency Medicine
DX: R07.89 Other chest pain (principal); R11.0 Nausea; F32.9 Major depressive disorder, single episode, unspecified; I10 Essential (primary) hypertension; M79.7 Fibromyalgia; F41.9 Anxiety disorder, unspecified; F20.9 Schizophrenia, unspecified; F17.210 Nicotine dependence, cigarettes, uncomplicated; Z87.442 Personal history of urinary calculi; Z90.711 Acquired absence of uterus with remaining cervical stump; Z98.890 Other specified postprocedural states; Z79.899 Other long term (current) drug therapy; Z79.01 Long term (current) use of anticoagulants; Z88.1 Allergy status to other antibiotic agents; Z88.2 Allergy status to sulfonamides; Z88.8 Allergy status to other drugs, medicaments and biological substances; Z86.711 Personal history of pulmonary embolism

== ENCOUNTER 2021-02-09 00:30 | Emergency (ER) | payer OTHER, MEDICAID ==
[~2021-02-09] VITALS: Ht 157.5 cm; Wt 68.0 kg
[~2021-02-09 00:30] MED LIST changes: +JANTOVEN2.5 MG PO; +JANTOVEN5 MG PO
[2021-02-09 01:26] LABS: URINE BILIRUBIN NEGATIVE (Negative); URINE BLOOD NEGATIVE (Negative); URINE CLARITY CLEAR; URINE COLOR YELLOW; URINE GLUCOSE-RANDOM NEGATIVE (Negative); URINE KETONES NEGATIVE (Negative); URINE LEUKOCYTES-REFLEX TRACE (Negative); URINE NITRITE-REFLEX NEGATIVE (Negative); URINE PROTEIN NEGATIVE (Negative); URINE SPECIFIC GRAVITY 1.015 (1.005-1.030); URINE UROBILINOGEN 0.2 E.U./dl (0.2-1.0)
[2021-02-09 01:47] LABS: CASTS None Seen /LPF (None Seen); MUCUS 0-3 Light strn/LPF (None Seen); SQUAMOUS >10 Many /LPF (0-3)
[2021-02-09 01:48] LABS: CRYSTALS None Seen /LPF (None Seen); URINE RBC None Seen /HPF (0-2); URINE WBC-REFLEX 6-15 Few /HPF (0-5)
[2021-02-09] MEDS ORDERED: MACROBID 100 M100 M1 PO (03:35)
[2021-02-09] MEDS ORDERED: NORCO5 PO (03:35)
[2021-02-09] MEDS ORDERED: NORFLEX100 MG PO (03:35)
[2021-02-09] MEDS ORDERED: MEDROLDOSEPACK PO (03:35)
[2021-02-09 03:43] VITALS: BP 117/72
== END 2021-02-09 03:44 | disposition home or self-care (01) ==
LOC: M.ERS 00:30
PROVIDERS: Emergency Medicine
DX: N39.0 Urinary tract infection, site not specified (principal); M54.59 Other low back pain; F32.9 Major depressive disorder, single episode, unspecified; I10 Essential (primary) hypertension; F41.9 Anxiety disorder, unspecified; F20.9 Schizophrenia, unspecified; F17.210 Nicotine dependence, cigarettes, uncomplicated; Z90.710 Acquired absence of both cervix and uterus; Z79.899 Other long term (current) drug therapy; Z88.2 Allergy status to sulfonamides; Z88.8 Allergy status to other drugs, medicaments and biological substances

== ENCOUNTER 2021-02-13 12:10 | Emergency (ER) | payer OTHER, MEDICAID ==
[~2021-02-13] VITALS: Ht 157.5 cm; Wt 68.0 kg
[~2021-02-13 12:10] MED LIST changes: +MEDROLDOSEPACK PO; +NORCO5 PO; +NORFLEX100 MG PO
[2021-02-13 14:11] LABS: ABSOLUTE BASOPHILS 0.1 thou/uL (0.0-0.2); ABSOLUTE EOSINOPHILS 0.1 thou/uL (0.0-0.7); ABSOLUTE LYMPHOCYTES 3.4 thou/uL (0.8-5.3); ABSOLUTE NEUTROPHILS 5.6 thou/uL (1.6-8.1); BASOPHILS 1.1 %; HEMATOCRIT 40.3 % (37.0-47.0); HEMOGLOBIN 13.4 gm/dL (12.0-15.0); LYMPHOCYTES 33.6 %; MCH 28.5 pg (26.0-34.0); MCHC 33.3 g/dL (28.0-37.0); MCV 85.6 fL (80.0-100.0); MONOCYTES 9.5 %; NUCLEATED RBCS 0 /100WBC; PLATELET COUNT* 426 thou/uL (150-400); POLYS 54.8 %; RDW-CV 15.3 % (10.5-14.5); WBC 10.2 thou/uL (4.0-11.0)
[2021-02-13 14:20] LABS: CALCIUM 8.7 mg/dL (8.5-10.1); CREATININE 0.6 mg/dL (0.6-1.3); POTASSIUM 3.8 mmol/L (3.5-5.1)
[2021-02-13 14:22] LABS: INR 1.1; PROTIME 11.1 Seconds (9.20-11.50)
[2021-02-13 14:25] LABS: ALBUMIN 3.7 g/dL (3.4-5.0); TOTAL BILIRUBIN 0.4 mg/dL (<0.1-1.0); TOTAL PROTEIN 6.7 g/dL (6.4-8.2)
[2021-02-13 16:10] VITALS: BP 111/60
== END 2021-02-13 16:11 | disposition home or self-care (01) ==
LOC: M.ERS 12:10
PROVIDERS: Physician Assistant
DX: M54.59 Other low back pain (principal); R10.31 Right lower quadrant pain; F32.9 Major depressive disorder, single episode, unspecified; I10 Essential (primary) hypertension; F41.9 Anxiety disorder, unspecified; F20.9 Schizophrenia, unspecified; F17.210 Nicotine dependence, cigarettes, uncomplicated; Z90.710 Acquired absence of both cervix and uterus; Z79.899 Other long term (current) drug therapy; Z88.0 Allergy status to penicillin; Z88.2 Allergy status to sulfonamides; Z88.8 Allergy status to other drugs, medicaments and biological substances

== ENCOUNTER 2021-03-15 12:53 | Emergency (ER) | payer OTHER, MEDICAID ==
[~2021-03-15] VITALS: Ht 157.5 cm; Wt 72.6 kg
[2021-03-15 16:03] LABS: ABSOLUTE BASOPHILS 0.1 thou/uL (0.0-0.2); ABSOLUTE EOSINOPHILS 0.1 thou/uL (0.0-0.7); ABSOLUTE LYMPHOCYTES 2.8 thou/uL (0.8-5.3); ABSOLUTE MONOCYTES 0.7 thou/uL (0.0-1.2); ABSOLUTE NEUTROPHILS 5.4 thou/uL (1.6-8.1); BASOPHILS 0.7 %; EOSINOPHILS 1.3 %; HEMATOCRIT 42.7 % (37.0-47.0); HEMOGLOBIN 14.3 gm/dL (12.0-15.0); MCH 28.3 pg (26.0-34.0); MCHC 33.4 g/dL (28.0-37.0); MCV 84.8 fL (80.0-100.0); MONOCYTES 7.6 %; MPV 6.9 fl. (7.2-11.1); NUCLEATED RBCS 0 /100WBC; PLATELET COUNT* 418 thou/uL (150-400); POLYS 59.4 %; RBC 5.04 mil/uL (4.20-5.00); WBC 9.1 thou/uL (4.0-11.0)
[2021-03-15 16:09] LABS: CALCIUM 8.9 mg/dL (8.5-10.1); CREATININE 0.8 mg/dL (0.6-1.3); POTASSIUM 4.1 mmol/L (3.5-5.1)
[2021-03-15 16:14] LABS: ALBUMIN 4.1 g/dL (3.4-5.0); TOTAL BILIRUBIN 0.3 mg/dL (<0.1-1.0); TOTAL PROTEIN 7.3 g/dL (6.4-8.2)
[2021-03-15] MEDS ORDERED: HYDROCODON-ACE1 EAC7 PO (16:52)
[2021-03-15 16:55] LABS: APTT 36.2 Seconds (25.0-31.3); INR 2.5; PROTIME 24.7 Seconds (9.20-11.50)
[2021-03-15 17:12] VITALS: BP 130/77
== END 2021-03-15 17:12 | disposition home or self-care (01) ==
LOC: M.ERS 12:53
PROVIDERS: Family Medicine
DX: R10.31 Right lower quadrant pain (principal); F32.9 Major depressive disorder, single episode, unspecified; I10 Essential (primary) hypertension; M79.7 Fibromyalgia; F41.9 Anxiety disorder, unspecified; F20.9 Schizophrenia, unspecified; F17.210 Nicotine dependence, cigarettes, uncomplicated; Z90.710 Acquired absence of both cervix and uterus; Z87.42 Personal history of other diseases of the female genital tract; Z87.442 Personal history of urinary calculi; Z98.890 Other specified postprocedural states; Z79.2 Long term (current) use of antibiotics; Z79.899 Other long term (current) drug therapy; Z79.01 Long term (current) use of anticoagulants; Z88.1 Allergy status to other antibiotic agents; Z88.2 Allergy status to sulfonamides; Z88.8 Allergy status to other drugs, medicaments and biological substances

== ENCOUNTER 2021-04-28 07:21 | Emergency (ER) | payer OTHER, MEDICAID ==
[~2021-04-28] VITALS: Ht 157.5 cm; Wt 77.1 kg
[2021-04-28 08:02] LABS: URINE BILIRUBIN NEGATIVE (Negative); URINE BLOOD TRACE (Negative); URINE CLARITY SL CLOUDY; URINE COLOR YELLOW; URINE GLUCOSE-RANDOM NEGATIVE (Negative); URINE KETONES NEGATIVE (Negative); URINE LEUKOCYTES-REFLEX NEGATIVE (Negative); URINE NITRITE-REFLEX NEGATIVE (Negative); URINE PROTEIN NEGATIVE (Negative); URINE SPECIFIC GRAVITY >= 1.030 (1.005-1.030); URINE UROBILINOGEN 0.2 E.U./dl (0.2-1.0)
[2021-04-28 08:10] LABS: ABSOLUTE BASOPHILS 0.1 thou/uL (0.0-0.2); ABSOLUTE EOSINOPHILS 0.2 thou/uL (0.0-0.7); ABSOLUTE LYMPHOCYTES 3.7 thou/uL (0.8-5.3); ABSOLUTE MONOCYTES 0.7 thou/uL (0.0-1.2); ABSOLUTE NEUTROPHILS 4.1 thou/uL (1.6-8.1); BASOPHILS 0.7 %; EOSINOPHILS 1.9 %; HEMATOCRIT 40.5 % (37.0-47.0); HEMOGLOBIN 13.7 gm/dL (12.0-15.0); LYMPHOCYTES 42.4 %; MCH 28.3 pg (26.0-34.0); MCHC 33.8 g/dL (28.0-37.0); MCV 83.6 fL (80.0-100.0); MONOCYTES 8.1 %; MPV 6.7 fl. (7.2-11.1); NUCLEATED RBCS 0 /100WBC; PLATELET COUNT* 474 thou/uL (150-400); POLYS 46.9 %; RBC 4.84 mil/uL (4.20-5.00); RDW-CV 14.6 % (10.5-14.5); WBC 8.7 thou/uL (4.0-11.0)
[2021-04-28 08:11] LABS: CALCIUM 8.5 mg/dL (8.5-10.1); CREATININE 0.8 mg/dL (0.6-1.3); POTASSIUM 3.9 mmol/L (3.5-5.1)
[2021-04-28 08:15] LABS: ALBUMIN 3.7 g/dL (3.4-5.0); TOTAL BILIRUBIN 0.2 mg/dL (<0.1-1.0); TOTAL PROTEIN 6.8 g/dL (6.4-8.2)
[2021-04-28] MEDS ORDERED: ZOFRAN ODT4 MG DISSOLVE (10:22)
[2021-04-28] MEDS ORDERED: HYDROCODON-ACE1 EAC7 PO (10:22)
[2021-04-28 10:35] LABS: INR 1.7; PROTIME 16.7 Seconds (9.20-11.50)
[2021-04-28 10:44] VITALS: BP 110/72
== END 2021-04-28 10:45 | disposition home or self-care (01) ==
LOC: M.ERS 07:21
PROVIDERS: Emergency Medicine Emergency Medical Services
DX: R10.31 Right lower quadrant pain (principal); R11.0 Nausea; F32.9 Major depressive disorder, single episode, unspecified; I10 Essential (primary) hypertension; M79.7 Fibromyalgia; F41.9 Anxiety disorder, unspecified; F20.9 Schizophrenia, unspecified; F17.210 Nicotine dependence, cigarettes, uncomplicated; Z86.711 Personal history of pulmonary embolism; Z90.710 Acquired absence of both cervix and uterus; Z87.442 Personal history of urinary calculi; Z98.890 Other specified postprocedural states; Z79.899 Other long term (current) drug therapy; Z79.2 Long term (current) use of antibiotics; Z79.01 Long term (current) use of anticoagulants; Z88.1 Allergy status to other antibiotic agents; Z88.2 Allergy status to sulfonamides; Z88.8 Allergy status to other drugs, medicaments and biological substances